=== PATIENT | female | born 1960 | race Caucasian/White ===

== ENCOUNTER 2016-05-10 12:25 | Emergency (ER) | payer OTHER ==
[~2016-05-10] VITALS: Ht 160 cm; Wt 68.9 kg
[~2016-05-10 12:25] MED LIST: CYCLOBENZAPRINE10 M1 PO; DELTASONE20 MG PO; DILAUDID2 M1 PO; FLOMAX0.4 M1 PO; PERCOCET 5-3251 EACH PO; SERTRALINE HCL50 MG PO; SUBOXONE 8 MG-1 EACH SL; ZOFRAN ODT4 M1 SL
[2016-05-10 12:28] VITALS: BP 127/81
--- NOTE | 2016-05-10 13:38 | ED NECK/BACK PAIN COMPLAINT ---
History of Present Illness General Chief Complaint: Low Back Pain/Injury Stated Complaint: LOW BACK PAIN Source: patient Exam Limitations: no limitations Vital Signs & Intake/Output Vital Signs & Intake/Output Vital Signs Date Time Temp Pulse Resp B/P Pulse O2 O2 Flow FiO2 Ox Delivery Rate 05/10 1228 97.8 79 18 127/81 96 Room Air Room Air Allergies Coded Allergies: latex (Mild, BURNING SENSATION 12/24/15) Reconcile Medications Buprenorphine HCl/Naloxone HCl (Suboxone 8 MG-2 MG Sl Film) 8 MG-2 MG FILM 1.5 STR SL DAILY UNKNOWN (Reported) Sertraline HCl 50 MG TABLET 1 TAB PO DAILY MENTAL HEALTH (Reported) Triage Note: TRIAGE: 55 Y/O FEMALE PRESENTS C/O LOWER BACK PAIN AND SPASMS X1 WEEK. REPORTS PAIN INCREASED YESTERDAY, WORSENED THIS MORNING. ABLE TO AMBULATE SLOWLY AND STEADILY. Triage Nurses Notes Reviewed? yes HPI: Ms. Ferreira is a 55 yo f w/ PMH of lumbar disc herniation w/ sciatica, remote L kidney ca presenting to the emergency department for right sided thoracic back pain. Patient states approximately 1.5 weeks ago, she was reaching behind her to wipe her bottom while using the restroom when she developed acute sudden onset right sided paraspinous tenderness. Patient states she feels as if something got pinched when she moved her hand in that position behind her back. The pain has since improved significantly however when she is in the shower cleaning herself and does similar motions reaching behind, she can re-create the pain. Patient states her has been giving her massages,which at the time while they're being done hurts slightly but do improve her pain significantly. She's also been using 800 mg of Advil every day broken out into either 400 mg twice a day for 800 mg in the morning with some relief. When the pain reoccurs, the patient states she occasionally has a shooting like he goes from her mid back and extends down her right arm. The pain only last for a few seconds but can cause her to scream out loud. She's also been using heat and ice with some improvement. Patient wanted to make sure that the massage as well as the CT and ice are not actually exacerbating the problem. She wanted to know if she should do her physical activities of daily life or try to limit herself and be more bedbound. She denies any falls or trauma to the area. Patient denies any chest pain, shortness of breath, jaw pain, dyspnea upon exertion, abdominal pain, nausea, vomiting, diarrhea. She denies any paresthesias in her hand currently. (MARIA DEL CARMEN LANE MD) Past History Travel History Traveled to [place] past 21 day No Medical History Any Pertinent Medical History? 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 No (MARIA DEL CARMEN LANE MD) Review of Systems Review of Systems Constitutional: Reports: no symptoms. Eyes: Reports: no symptoms. Ears, Nose, Throat, Mouth: Reports: no symptoms. Respiratory: Reports: no symptoms. Cardiovascular: Reports: no symptoms. Gastrointestinal/Abdominal: Reports: no symptoms. Musculoskeletal: Reports: back pain, muscle pain, muscle stiffness. Denies: neck pain. Skin: Reports: no symptoms. Neurological/Psychological: Reports: paresthesia, tingling. All Other Systems: Reviewed and Negative (MARIA DEL CARMEN LANE MD) Physical Exam Physical Exam General Appearance: well developed/nourished, no apparent distress, alert, awake Head: atraumatic, normal appearance Eyes: Bilateral: normal appearance, PERRL, EOMI, normal inspection. Ears, Nose, Throat, Mouth: hearing grossly normal Neck: normal inspection, supple, full range of motion, normal alignment, no midline tenderness Respiratory: normal breath sounds, chest non-tender, no respiratory distress Cardiovascular: regular rate/rhythm Back: normal inspection, normal range of motion, no vertebral tenderness, no CVA TTP bilaterally Extremities: non-tender, normal range of motion Straight Leg Raising: Right: Negative. Left: Negative. Sensory: Medial Le: L4R, L4L. Top of Foot: 2: L5R, L5L. Sole of Foot: 2: SIR, SOL. Motor: Deficit L4 Right: No Deficit L4 Left: No Deficit L5 Right: No Deficit L5 Left: No Deficit S1 Right: No Deficit S1 Right: No Neurologic/Psych: no motor/sensory deficits, awake, alert, oriented x 3, normal gait, normal mood/affect, tick eradicator II-XII nml as tested Skin: intact, normal color (MARIA DEL CARMEN LANE MD) Progress Differential Diagnosis: cauda equina syn, herniated disc, pyelo/UTI, sciatica, spinal cord inj, T/L spine injury, ureterolithiasis Plan of Care: A 55-year-old female who is otherwise well appearing. Patient is laying in bed primarily on her left side and appears slightly uncomfortable. Neurologic exam is otherwise unremarkable. Patient has normal motor and sensory function in bilateral upper extremities as well as bilateral lower extremities. Rectal tone is deferred. No issues with ambulation and she denies any issues with bowel or bladder so unlikely cauda equina. History of herniated disks. These have been all noted to be in the lumbar area. No traumatic mechanism to suggest fracture. No CVA tenderness bilaterally or increased urinary frequency or dysuria to suggest pyelonephritis. She has previous history of sciatica however straight leg raise is negative bilaterally and the pain cannot be created with palpation over the buttocks. Patient pain can be re-created with palpation over the right paraspinous area at approximately T12. Most likely, this is a radiculopathy, whether it extends from the vertebral foramen or more distally in the brachial plexus. Patient's full sensory intact in bilateral upper extremities and hands. Discussed with patient at length that she likely has a radiculopathy which is causing a muscle spasm on the right side. Patient offered Valium to assist with pain relief, however the patient does take Suboxone and states that her pain is moderately well controlled with NSAIDs massage heat and ice. She does not want any narcotics or benzodiazepines today. Patient wanted reassurance that the massage is not making her worse and that she should continue with daily activities of living and not limited herself. We spoke at length about possibly obtaining a repeat MRI as her last MRI was performed approximately 1.5 years ago to assess for possible further disc herniations that she has diffuse degenerative disc disease. Also discussed at length the possibility of performing simple range of motion exercises as well as physical therapy to strengthen the muscles and hopefully decrease the radicular pain. (MARIA DEL CARMEN LANE MD) Departure Departure Time of Disposition: 1336 Disposition: HOME OR SELF CARE Condition: Stable Clinical Impression Primary Impression: Radiculopathy affecting upper extremity Referrals: PAUL MORENO,Teresa RECINOS (PCP/Family) Additional Instructions: Please make sure he follow up with her primary care doctor as soon as possible. MIP 3 to have a repeat MRI to assess if you have any additional bulging disks. If you have worsening pain, numbness tingling that continues to last, difficulty using her fingers, difficulty ambulating or any issues with bowel or bladder, previous return to the emergency department for further evaluation. He can continue to use Advil for the pain. Remember if you using more than 800 mg per day, to take a GI medication to prevent ulcers such as Zantac or omeprazole. He can continue to use heat and ice as needed and start doing slow range of motion exercises to help with the pain. Also be helpful to go back to physical therapy. Departure Forms: Customer Survey General Discharge Information (MARIA DEL CARMEN LANE MD) PA/IRRIGATION WORKER Co-Sign Statement Statement: ED Attending supervision documentation- [] I saw and evaluated the patient. I have also reviewed all the pertinent lab results and diagnostic results. I agree with the findings and the plan of care as documented in the PA's/IRRIGATION WORKER's documentation. x I have reviewed the ED Record and agree with the PA's/IRRIGATION WORKER's documentation. [] Additions or exceptions (if any) to the PAs/IRRIGATION WORKER's note and plan are summarized below: [] (STEFANI MORENO,KYM)
== END 2016-05-10 13:45 ==
LOC: ERH 12:25
DX: M54.10 Radiculopathy, site unspecified (principal)
CPT/HCPCS: 99282

== ENCOUNTER 2017-06-06 23:26 | Emergency (ER) | payer OTHER ==
[~2017-06-06] VITALS: Ht 160 cm; Wt 71.7 kg
--- NOTE | 2017-06-07 00:16 | ED GI/GU/ABDOMINAL COMPLAINT ---
History of Present Illness General Chief Complaint: General Adult Stated Complaint: "LT SIDE ABD PAIN,BAD HISTORY OF KIDNEY STONES" Source: patient Exam Limitations: no limitations Vital Signs & Intake/Output Vital Signs & Intake/Output Vital Signs Date Time Temp Pulse Resp B/P B/P Pulse O2 O2 Flow FiO2 Mean Ox Delivery Rate 06/07 0008 98.8 71 18 186/82 96 Room Air Allergies Coded Allergies: latex (Mild, BURNING SENSATION 12/24/15) Reconcile Medications Buprenorphine HCl/Naloxone HCl (Suboxone 8 MG-2 MG Sl Film) 8 MG-2 MG FILM 1.5 STR SL DAILY UNKNOWN (Reported) Sertraline HCl 50 MG TABLET 1 TAB PO DAILY MENTAL HEALTH (Reported) Triage Note: PT TO ED C/O LEFT SIDE PAIN FOR 3 DAYS, GETTING WORSE. PMH OF KIDNEY STONES. "I THOUGHT IT WAS GAS BUT IT'S JUST NOT GETTING BETTER. DENIES N/V. LAST BM WAS YESTERDAY AM. UNSURE OF UTI S/S. Triage Nurses Notes Reviewed? yes ? n Is pt currently ? No Onset: Gradual Duration: day(s): Timing: single episode today Location: left flank Radiation: LLQ Activities at Onset: none Prior Abdominal Problems: similar symptoms Associated Symptoms: abdominal pain HPI: 56 yo woman, on suboxone in prior good health presents with 3 days of left back pain radiating to the left flank, occasional nausea. "Tonight, I couldn't get comfortable." She has no diarrhea, dysuria, fever, chills. She is otherwise well. Past History Travel History Traveled to [place] past 21 day No Medical History Any Pertinent Medical History? 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 No Review of Systems Review of Systems Constitutional: Reports: no symptoms. EENTM: Reports: no symptoms. Respiratory: Reports: no symptoms. Cardiovascular: Reports: no symptoms. GI: Reports: no symptoms. Genitourinary: Reports: no symptoms. Musculoskeletal: Reports: no symptoms. Skin: Reports: no symptoms. Neurological/Psychological: Reports: no symptoms. Hematologic/Endocrine: Reports: no symptoms. Immunologic/Allergic: Reports: no symptoms. All Other Systems: Reviewed and Negative Physical Exam Physical Exam General Appearance: well developed/nourished, mild distress Head: atraumatic, normal appearance Eyes: Bilateral: normal appearance. Ears, Nose, Throat, Mouth: hearing grossly normal, moist mucous membrane Neck: normal inspection, supple, full range of motion, normal alignment Respiratory: normal breath sounds, chest non-tender, no respiratory distress, quiet respiration Cardiovascular: regular rate/rhythm Gastrointestinal: normal bowel sounds, soft, non-tender, no organomegaly Back: normal inspection Extremities: normal range of motion Neurologic/Psych: no motor/sensory deficits, awake, alert, oriented x 3 Skin: intact, normal color, warm/dry Core Measures ACS in differential dx? No Sepsis Present: No Sepsis Focused Exam Completed? No Progress Differential Diagnosis: kidney stones, pyelo, back pain vs other. Plan of Care: Orders Procedure Date/time Status URINALYSIS 06/06 2333 Complete LIPASE 06/06 2333 Complete HEPATIC FUNCTION PANEL 06/06 2333 Complete CBC WITHOUT DIFFERENTIAL 06/06 2333 Complete BASIC METABOLIC PANEL 06/06 2333 Complete AMYLASE 06/06 2333 Complete Laboratory Tests 06/07/17 0033: Anion Gap 9, Estimated GFR > 60, BUN/Creatinine Ratio 21.7, Glucose 97, Calcium 9.3, Total Bilirubin 0.4, Direct Bilirubin 0.4, AST 26, ALT 20, Alkaline Phosphatase 73, Total Protein 7.1, Albumin 4.2, Amylase 39, Lipase 25, CBC w Diff NO MAN DIFF REQ, RBC 4.21, MCV 85.2, MCH 28.6, MCHC 33.6, RDW 14.1, MPV 7.7 , Gran % 59.1, Lymphocytes % 32.8, Monocytes % 4.4, Eosinophils % 3.5, Basophils % 0.2, Absolute Granulocytes 5.7, Absolute Lymphocytes 3.2, Absolute Monocytes 0.4, Absolute Eosinophils 0.3, Absolute Basophils 0 06/06/175: Urine Color YEL, Urine Clarity CLEAR, Urine pH 7.0, Ur Specific [place] 1.010, Urine Protein NEG, Urine Ketones NEG, Urine Nitrite NEG, Urine Bilirubin NEG, Urine Urobilinogen 0.2, Ur Leukocyte Esterase NEG, Ur Microscopic EXAM NOT REQUIRED, Urine Hemoglobin NEG, Urine Glucose NEG Diagnostic Imaging: Viewed by Me: CT Scan. Discussed w/RAD: CT Scan. Radiology Impression: PATIENT: ADITHYA COOPER PRESENT AGE: 56 PATIENT ACCOUNT NO: [id number] : 60 LOCATION: [facility] ORDERING PHYSICIAN: Fran Medellin MD SERVICE DATE: 06/07/17 EXAM TYPE: CAT - CT ABD & PELVIS W/O IV CONTRAS EXAMINATION: CT ABDOMEN AND PELVIS WITHOUT CONTRAST CLINICAL INFORMATION: Left flank pain COMPARISON: 10/19/2015 TECHNIQUE: Multidetector volumetric imaging was performed from the superior aspect of the liver through the pubic symphysis. Sagittal and coronal reformatted images were obtained on the technologist's workstation. DLP: 510.23 mGy-cm FINDINGS: LUNG BASES: The visualized lung bases are unremarkable. LIVER, GALLBLADDER, AND BILIARY TREE: The liver is normal in size, shape, and attenuation. No focal hepatic lesion or biliary ductal dilatation is present. There is hyperdensity of the gallbladder fundus suspicious for sludge or cholelithiasis. PANCREAS: Unremarkable. SPLEEN: Unremarkable. ADRENAL GLANDS: Unremarkable. KIDNEYS AND URETERS: No hydronephrosis or ureteral calculus bilaterally. There is a left lower pole renal calculus measuring 0.3 cm. No right-sided renal calculi are seen. BLADDER: Unremarkable. GASTROINTESTINAL TRACT: There are postsurgical changes along the stomach and proximal small bowel suspicious for gastric bypass surgery. There is a suspected hiatal hernia. No evidence of bowel obstruction. No abnormal colonic wall thickening or pericolonic inflammation is identified. The appendix is unremarkable. No free fluid or free air is seen. ABDOMINAL WALL: There is redemonstrated soft tissue thickening and focal calcification along the upper anterior abdominal wall, which may reflect postsurgical scarring. LYMPH NODES: Normal. VASCULAR: Scattered atherosclerotic calcifications are present. PELVIC VISCERA: Unremarkable. OSSEOUS STRUCTURES: Degenerative changes are noted in the spine. IMPRESSION: 1. No hydronephrosis or ureteral calculus. Left lower pole 0.3 cm renal calculus. 2. Status post gastric bypass surgery. Suspect hiatal hernia. 3. Cholelithiasis versus gallbladder sludge at the fundus. DICTATED BY: Gabriel Matos MD DATE/TIME DICTATED:06/07/17144 CUT TOBACCO BULKER:LARISSA DATE/TIME TRANSCRIBED:06/07/17144 CONFIDENTIAL, DO NOT COPY WITHOUT APPROPRIATE AUTHORIZATION. <Electronically signed in Other Vendor System> SIGNED BY: Gabriel Matos MD 06/07/17 0158 Initial ED EKG: none Departure Departure Disposition: HOME OR SELF CARE Condition: Stable Clinical Impression Primary Impression: Abdominal pain Secondary Impressions: Back pain Referrals: Teresa Mckenna MD (PCP/Family) Departure Forms: Customer Survey General Discharge Information Comments 06/07/17, 2:22am... pt with benign ct scan, labs... resting comfortably... safe for discharge... close follow up advised. Disposition: HOME OR SELF CARE Condition: Stable Clinical Impression Primary Impression: Abdominal pain Secondary Impressions: Back pain Referrals: Teresa Mckenna MD (PCP/Family) Departure Forms: Customer Survey General Discharge Information
[2017-06-07 00:36] LABS: ABSOLUTE BASOPHIL COUNT 0 /CUMM (0.0-0.2); ABSOLUTE EOSINOPHIL COUNT 0.3 /CUMM (0.0-0.7); ABSOLUTE GRANULOCYTE CT 5.7 /CUMM (1.4-6.5); ABSOLUTE LYMPH COUNT 3.2 /CUMM (1.2-3.4); ABSOLUTE MONOCYTE COUNT 0.4 /CUMM (0.10-0.60); BASOPHIL % 0.2 % (0.0-2.0); EOSINOPHIL % 3.5 % (0-5); GRANULOCYTE % 59.1 % (42.2-75.2); HEMATOCRIT 35.9 % (37-47); MEAN CORPUSCULAR HGB 28.6 PG (27.0-31.0); MEAN CORPUSCULAR HGB CONC 33.6 G/DL (33.0-37.0); MEAN CORPUSCULAR VOLUME 85.2 FL (81.0-99.0); MEAN PLATELET VOLUME 7.7 FL (7.4-10.4); PLATELET COUNT 252 /CUMM (130-400); RBC DISTRIBUTION WIDTH 14.1 % (11.5-14.5); RED BLOOD CELL CT 4.21 /CUMM (4.20-5.40); WHITE BLOOD CELL COUNT 9.6 /CUMM (4.8-10.8)
--- NOTE | 2017-06-07 01:58 | CT SCAN REPORT ---
EXAMINATION: CT ABDOMEN AND PELVIS WITHOUT CONTRAST CLINICAL INFORMATION: Left flank pain COMPARISON: 10/19/2015 TECHNIQUE: Multidetector volumetric imaging was performed from the superior aspect of the liver through the pubic symphysis. Sagittal and coronal reformatted images were obtained on the technologist's workstation. DLP: 510.23 mGy-cm FINDINGS: LUNG BASES: The visualized lung bases are unremarkable. LIVER, GALLBLADDER, AND BILIARY TREE: The liver is normal in size, shape, and attenuation. No focal hepatic lesion or biliary ductal dilatation is present. There is hyperdensity of the gallbladder fundus suspicious for sludge or cholelithiasis. PANCREAS: Unremarkable. SPLEEN: Unremarkable. ADRENAL GLANDS: Unremarkable. KIDNEYS AND URETERS: No hydronephrosis or ureteral calculus bilaterally. There is a left lower pole renal calculus measuring 0.3 cm. No right-sided renal calculi are seen. BLADDER: Unremarkable. GASTROINTESTINAL TRACT: There are postsurgical changes along the stomach and proximal small bowel suspicious for gastric bypass surgery. There is a suspected hiatal hernia. No evidence of bowel obstruction. No abnormal colonic wall thickening or pericolonic inflammation is identified. The appendix is unremarkable. No free fluid or free air is seen. ABDOMINAL WALL: There is redemonstrated soft tissue thickening and focal calcification along the upper anterior abdominal wall, which may reflect postsurgical scarring. LYMPH NODES: Normal. VASCULAR: Scattered atherosclerotic calcifications are present. PELVIC VISCERA: Unremarkable. OSSEOUS STRUCTURES: Degenerative changes are noted in the spine. IMPRESSION: 1. No hydronephrosis or ureteral calculus. Left lower pole 0.3 cm renal calculus. 2. Status post gastric bypass surgery. Suspect hiatal hernia. 3. Cholelithiasis versus gallbladder sludge at the fundus.
[2017-06-07 02:25] VITALS: BP 165/74
== END 2017-06-07 02:25 ==
LOC: ERH 23:26
PROVIDERS: Pediatrics
DX: R10.32 Left lower quadrant pain (principal); M54.5 Low back pain
CPT/HCPCS: 74176; 81003; 96374; J0131

== ENCOUNTER 2017-07-18 14:59 | Inpatient (IN) | payer OTHER ==
[~2017-07-18] VITALS: Ht 160 cm; Wt 85.7 kg
[2017-07-18 16:09] LABS: ABSOLUTE BASOPHIL COUNT 0 /CUMM (0.0-0.2); ABSOLUTE EOSINOPHIL COUNT 0 /CUMM (0.0-0.7); ABSOLUTE GRANULOCYTE CT 20.2 /CUMM (1.4-6.5); ABSOLUTE LYMPH COUNT 0.5 /CUMM (1.2-3.4); ABSOLUTE MONOCYTE COUNT 0.5 /CUMM (0.10-0.60); BASOPHIL % 0.1 % (0.0-2.0); EOSINOPHIL % 0 % (0-5); GRANULOCYTE % 94.9 % (42.2-75.2); HEMATOCRIT 37.8 % (37-47); MEAN CORPUSCULAR HGB 28.4 PG (27.0-31.0); MEAN CORPUSCULAR HGB CONC 33.7 G/DL (33.0-37.0); MEAN CORPUSCULAR VOLUME 84.3 FL (81.0-99.0); MEAN PLATELET VOLUME 8.1 FL (7.4-10.4); PLATELET COUNT 237 /CUMM (130-400); RBC DISTRIBUTION WIDTH 13.9 % (11.5-14.5); RED BLOOD CELL CT 4.49 /CUMM (4.20-5.40); WHITE BLOOD CELL COUNT 21.3 /CUMM (4.8-10.8)
--- NOTE | 2017-07-18 16:11 | ED GENERAL ADULT ---
History of Present Illness General Chief Complaint: General Adult Stated Complaint: PT STATES "SOMETHINGS WRONG/FEVER WEAK,SHAKEY" Source: patient Exam Limitations: no limitations Vital Signs & Intake/Output Vital Signs & Intake/Output Vital Signs Date Time Temp Pulse Resp B/P B/P Pulse O2 O2 Flow FiO2 Mean Ox Delivery Rate 07/18 2249 109/59 07/18 2213 99.1 88 98/58 95 07/18 2125 98.9 79 19 96/51 95 07/18 2002 99.1 81 17 101/54 94 Room Air 07/18 1824 18 98 Nasal 2.0L Cannula 07/18 1818 98.8 79 18 95/48 90 Room Air 07/18 1519 98.9 96 16 97/67 97 Room Air Allergies Coded Allergies: latex (Mild, BURNING SENSATION 12/24/15) Reconcile Medications Buprenorphine HCl/Naloxone HCl (Suboxone 8 MG-2 MG Sl Film) 8 MG-2 MG FILM 1.5 STR SL DAILY UNKNOWN (Reported) Sertraline HCl 50 MG TABLET 1 TAB PO DAILY MENTAL HEALTH (Reported) Triage Note: PT STATES THAT SHE HAS C-DIFF THAT SHE HAS BEEN BEING TREATED FOR , HAS HAD NUMEROUS EPISODES OF WATERY STOOL TODAY, COMPLAINS OF FEELING WEAK, BP 97/67 ALSO STATES THAT SHE WAS DIAGNOSED WITH KIDNEY CANCER LAST MONTH AND HAS BEEN HAVING LOW BACK PAIN Triage Nurses Notes Reviewed? yes Onset: Abrupt Duration: day(s): (1-2), constant, continues in ED Timing: single episode today Injury Environment: home Severity: moderate, severe Severity Numbers: 8 No Modifying Factors: none Associated Symptoms: back pain LMP (ages 10-50): post menopausal, unknown : No Patient currently breastfeeds: No HPI: 56 YEAR OLD female with history of renal cancer, recurrent C. difficile presents for evaluation of lower abdominal pain, diarrhea, weakness and body aches. Patient reports she has been having recurrent C. difficile multiple times. She states that 2 weeks ago she started treatment with oral vancomycin which she did for one week. She initially felt better but then her symptoms came back. Yesterday she started dIFFICID and today she woke up with worsening pain in her belly continued watery diarrhea without blood, weakness and diffuse body aches. Patient states she has had a decreased appetite has not been drinking much fluid. She denies chest pain shortness of breath. She has subjective signs of fever with sweats and chills but has not taken her temperature. She is not taking any pain medicine. No vomiting. No recent abdominal surgery. (Yariel Dockery) Past History Travel History Traveled to [place] past 21 day No Medical History Any Pertinent Medical History? 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 No (Yariel Dockery) Review of Systems Review of Systems Constitutional: Reports: malaise, weakness. EENTM: Reports: no symptoms. Respiratory: Reports: no symptoms. Cardiovascular: Reports: no symptoms. GI: Reports: see HPI, abdominal pain, diarrhea. Genitourinary: Reports: no symptoms. Musculoskeletal: Reports: back pain, muscle pain, muscle stiffness. Skin: Reports: no symptoms. Neurological/Psychological: Reports: no symptoms. Hematologic/Endocrine: Reports: no symptoms. Immunologic/Allergic: Reports: no symptoms. All Other Systems: Reviewed and Negative (Yariel Dockery) Physical Exam Physical Exam General Appearance: well developed/nourished, no apparent distress, alert, awake Head: atraumatic, normal appearance Eyes: Bilateral: normal appearance, PERRL, EOMI. Ears, Nose, Throat: normal pharynx, normal ENT inspection, hearing grossly normal Neck: normal inspection, supple, full range of motion Respiratory: normal breath sounds, chest non-tender, no respiratory distress, lungs clear Cardiovascular: regular rate/rhythm, normal peripheral pulses Peripheral Pulses: 2+ radial (R), 2+ radial (L) Gastrointestinal: normal bowel sounds, soft, no organomegaly, tenderness ( DIFFUSE LOWER ABDOMINAL PAIN) Back: normal inspection, normal range of motion, LUMBAR PARASPINOUS MUSCLES TENDER TO PALPATION BILATERALLY Extremities: normal inspection, normal range of motion, no edema Neurologic/Psych: no motor/sensory deficits, awake, alert, oriented x 3, normal gait Skin: intact, normal color, warm/dry Lymphatic: no anterior cervical genevieve Core Measures ACS in differential dx? No CVA/TIA Diagnosis: No Sepsis Present: No Sepsis Focused Exam Completed? No (Anthony PAN,Yariel) Progress Differential Diagnoses I considered the following diagnoses in my evaluation of the patient: [C. difficile, bacterial gastritis, colitis, sepsis, UTI, pneumonia, dehydration, electrolyte abnormality] Plan of Care: Orders Procedure Date/time Status Full Liquid Diet 07/19 B Active Patient Data 07/18 2250 Active ED Holding Orders 07/19 2247 Active Admit to inpatient 07/19 2247 Active Vital Signs 07/19 2247 Active Code Status 07/19 2247 Active CULTURE,STOOL 07/18 1937 Active OVA AND PARASITE ANTIGENS 07/18 1937 Active C.DIFFICILE 07/18 1937 Active Add-on Test (ER Only) 07/18 1903 Active FRESH FROZEN PLASMA 07/18 1820 Active TYPE & SCREEN (NOT X-MATCH) 07/18 181 Complete Add-on Test (ER Only) 07/18 1657 Active CULTURE,URINE 07/18 1640 Active BLOOD CULTURE 07/18 1640 Active D-DIMER 07/18 1550 Complete URINALYSIS 07/18 1528 Complete TROPONIN LEVEL 07/18 1528 Complete LACTIC ACID 07/18 1528 Complete COMPREHENSIVE METABOLIC PANEL 07/18 1528 Complete CBC WITHOUT DIFFERENTIAL 07/18 1528 Complete EKG 07/18 1528 Active Laboratory Tests 07/18/17 1828: Lactic Acid Cancelled 07/18/17 1658: Anion Gap 9, Estimated GFR > 60, BUN/Creatinine Ratio 25.0, Glucose 120 H, Lactic Acid 1.1, Calcium 8.6, Total Bilirubin 0.5, AST 26, ALT 22, Alkaline Phosphatase 65, Troponin I < 0.01, Total Protein 6.5, Albumin 3.6, Globulin 2.9, Albumin/Globulin Ratio 1.2 07/18/17 1640: Urinalysis MOD H, Urine Color YEL, Urine Clarity HAZY H, Urine pH 6.0, Ur Specific Enterprise >= 1.030, Urine Protein 30 H, Urine Ketones 15 H, Urine Nitrite NEG, Urine Bilirubin NEG@ICTO, Urine Urobilinogen 0.2, Ur Leukocyte Esterase TRACE H, Ur Microscopic SEDIMENT EXAMINED, Urine WBC 1-3 H, Ur Epithelial Cells FEW, Urine Bacteria MOD H, Urine Mucus MOD H, Urine Hemoglobin NEG, Urine Glucose NEG 07/18/17 1550: D-Dimer High Sensitivty 781 H, CBC w Diff MAN DIFF ORDERED, RBC 4.49, MCV 84.3, MCH 28.4, MCHC 33.7, RDW 13.9, MPV 8.1, Gran % 94.9 H, Lymphocytes % 2.5 L, Monocytes % 2.5, Eosinophils % 0, Basophils % 0.1, Absolute Granulocytes 20.2 H , Segmented Neutrophils 90 H, Band Neutrophils 4, Absolute Lymphocytes 0.5 L, Lymphocytes 4 L, Monocytes 2, Absolute Monocytes 0.5, Absolute Eosinophils 0, Absolute Basophils 0, Platelet Estimate ADEQUATE, Stomatocytes FEW Microbiology 07/18 1937 STOOL: Cryptosporidium Antigen - ORD 07/18 1937 STOOL: Giardia Antigen (MARY JANE) - ORD 07/18 1937 STOOL: Clostridium difficile Toxin A & B - ORD 07/18 1937 STOOL: Stool Culture - ORD 07/18 1751 BLOOD: Blood Culture - RECD 07/18 1658 BLOOD: Blood Culture - RECD 07/18 1640 URINE ROUT: Urine Culture - RECD Patient seen and evaluated. She is here with weakness dizziness abdominal pain and multiple episodes of watery diarrhea. She has been diagnosed with C. difficile multiple times. She was treated with oral vancomycin 2 weeks ago without improvement she was started dIFICID yesterday. She arrives with a systolic blood pressure in the 90s. Fluids were ordered. Labs blood cultures CT of the abdomen ordered. Patient's EKG shows worsening diffuse T-wave changes compared to previous. Patient received 2 L of fluid and has not improved her blood pressure. Additional liter was ordered. Blood work shows a white count of 21,000 which would support a diagnosis of C. difficile. Her CT scan is negative for any acute findings. Chest x-ray clear. Remaining blood work is within normal limits. Patient's blood work has started to come up after additional fluid to 100s over 50s over her oxygen saturation on room air was noted to be slightly low now. She was placed on oxygen with good improvement. D-dimer was added on and was elevated so a CTA will be obtained. Patient will likely require admission to the hospital. CTA is negative. Patient's blood pressure remains in the 90s over 50s. Additional fluids ordered. She received IV Flagyl. Stool cultures were sent patient will be admitted to the hospital for further evaluation and treatment of C. difficile dehydration and hypotension. Case discussed with Dr. Gannon he agrees. Patient's blood pressure is now 109/59 after hydration. She should be okay for general medicine. Diagnostic Imaging: Viewed by Me: Radiology Read, CT Scan. Discussed w/RAD: Radiology Read, CT Scan. Radiology Impression: PATIENT: ADITHYA COOPER PRESENT AGE: 56 PATIENT ACCOUNT NO: [id number] : 60 LOCATION: ER ORDERING PHYSICIAN: Yariel PAN SERVICE DATE: 07/18/17 EXAM TYPE: RAD - XRY- PORTABLE CHEST XRAY EXAMINATION: XR CHEST, PORTABLE CLINICAL INFORMATION: Elevated WBC, fever. COMPARISON: Chest radiography 11/17/2012. TECHNIQUE: Portable frontal view of the chest was obtained. FINDINGS: The lungs are well expanded. No convincing lobar consolidation, pleural effusion, pulmonary edema, or pneumothorax. No mediastinal widening. Surgical clips overlie the lower thorax/upper abdomen. No acute osseous abnormalities. IMPRESSION: No evidence of pneumonia. DICTATED BY: Adria Blanton MD DATE/TIME DICTATED:07/18/171744 GARMENT SEWING MACHINE OPERATOR:LARISSA DATE/TIME TRANSCRIBED:07/18/171744 CONFIDENTIAL, DO NOT COPY WITHOUT APPROPRIATE AUTHORIZATION. <Electronically signed in Other Vendor System> SIGNED BY: Adria Blanton MD 07/18/171755, PATIENT: ADITHYA COOPER PRESENT AGE: 56 PATIENT ACCOUNT NO: [id number] : 60 LOCATION: [facility] ORDERING PHYSICIAN: Yariel PAN SERVICE DATE: 07/18/17405 EXAM TYPE: CAT - CT ABD & PELVIS W/O IV CONTRAS EXAMINATION: CT ABDOMEN AND PELVIS WITHOUT CONTRAST CLINICAL INFORMATION: Diarrhea with back pain. COMPARISON: CT abdomen/pelvis 06/07/2017. TECHNIQUE: Multidetector volumetric imaging was performed from the superior aspect of the liver through the pubic symphysis. Sagittal and coronal reformatted images were obtained on the technologist's workstation. DLP: 464.68 mGy-cm FINDINGS: LUNG BASES: The visualized lung bases are unremarkable. LIVER, GALLBLADDER, AND BILIARY TREE: The liver is normal in size, shape, and attenuation. No focal hepatic lesion or biliary ductal dilatation is present. The gallbladder is mildly distended with a small amount of echogenic sludge layering within the dependent gallbladder. No gallbladder wall thickening or pericholecystic fluid. The common bile duct is normal. PANCREAS: Unremarkable. SPLEEN: Unremarkable. ADRENAL GLANDS: Unremarkable. KIDNEYS AND URETERS: The kidneys are normal in size, shape, and attenuation. No hydronephrosis or hydroureter. Punctate 2 mm calcification lower pole left kidney is unchanged. No perinephric stranding. BLADDER: Unremarkable. GASTROINTESTINAL TRACT: Status post Onofre-en-Y gastric bypass. The small and large bowel are otherwise normal in course and caliber . No obstruction. No pericolonic inflammatory changes. Small hiatal hernia with additional postsurgical changes of the gastroesophageal junction. ABDOMINAL WALL: Stable postsurgical changes of the anterior abdominal wall with a prominent soft tissue calcification. Small umbilical fat-containing hernia, unchanged. LYMPH NODES: Normal. VASCULAR: Minimal atherosclerotic changes of the abdominal aorta and its branches. PELVIC VISCERA: Unremarkable. OSSEOUS STRUCTURES: Stable mild degenerative changes of the spine. No acute osseous finding. IMPRESSION: No acute abdominal/pelvic pathology. Stable punctate nonobstructive calculus in the left kidney. DICTATED BY: Claude Louis MD DATE/TIME DICTATED:07/18/171739 GARMENT SEWING MACHINE OPERATOR:LARISSA DATE/TIME TRANSCRIBED:07/18/171739 CONFIDENTIAL, DO NOT COPY WITHOUT APPROPRIATE AUTHORIZATION. <Electronically signed in Other Vendor System> SIGNED BY: Claude Louis MD 07/18/17 175, PATIENT: ADITHYA COOPER PRESENT AGE: 56 PATIENT ACCOUNT NO: [id number] : 60 LOCATION: [facility] ORDERING PHYSICIAN: Yariel PAN SERVICE DATE: 07/18/17 EXAM TYPE: CAT - CTA CHEST-PULMONARY EMBOLISM EXAMINATION: CT ANGIOGRAM OF THE CHEST WITH AND WITHOUT CONTRAST (CT PULMONARY ANGIOGRAM FOR PE) CLINICAL INFORMATION: Hypoxia and hypotension. COMPARISON: None available. TECHNIQUE: Prior to contrast administration, noncontrast localization images were obtained. Subsequently, multidetector volumetric imaging was performed from the thoracic inlet to below the diaphragms following the administration of 95 mL Optiray 320 intravenous contrast. No contrast reaction reported. Sagittal, coronal, and MIP oblique sagittal reformatted images were obtained on the CT workstation, uploaded to PACS, and reviewed. Total exam dose-length product 400.46 mGy-cm. FINDINGS: QUALITY OF STUDY/CONTRAST BOLUS: Satisfactory PULMONARY ARTERIES: No central or segmental pulmonary emboli. THORACIC AORTA: No aneurysm or dissection. LUNG: No focal consolidation, nodules or masses. Minimal gravity dependent changes of the lungs bilaterally. PLEURA: No pleural effusion or pneumothorax. MEDIASTINUM: Normal heart size. No pericardial effusion. No hilar or mediastinal lymphadenopathy. No evidence of septal bowing or right heart strain. CHEST WALL/AXILLA: No axillary or internal mammary lymphadenopathy. OSSEOUS STRUCTURES: No acute or suspicious osseous abnormality. UPPER ABDOMEN: Stable appearance of the abdomen from CT examination dated earlier today. No reflux of contrast into the hepatic veins to suggest elevated right heart pressures. IMPRESSION: No evidence of pulmonary embolism or acute thoracic pathology. VTE: Negative. DICTATED BY: Claude Louis MD DATE/TIME DICTATED:10/27 GARMENT SEWING MACHINE OPERATOR:LARISSA DATE/TIME TRANSCRIBED:07/18/172119 CONFIDENTIAL, DO NOT COPY WITHOUT APPROPRIATE AUTHORIZATION. <Electronically signed in Other Vendor System> SIGNED BY: Claude Louis MD 07/18/172130 Initial ED EKG: normal sinus rhythm, left atrial abn, diffuse t wave changes Prior EKG: changed (WORSENING T WAVE CHANGES ) (Yariel Dockery) Departure Departure Disposition: STILL A PATIENT Condition: Stable Clinical Impression Primary Impression: Clostridium difficile diarrhea Secondary Impressions: Acute electrocardiogram changes Referrals: Haim Oates MD (PCP/Family) Departure Forms: Customer Survey General Discharge Information (Yariel Dockery) Admission Note Spoke With: Juan Luna MD Documentation of Exam: Documentation of any treatments & extenuating circumstances including Concerns Regarding Discharge (functional status, medication knowledge or non-compliance, living conditions, etc.) that warrant an admission rather than observation: [The patient needs IV fluids, IV antibiotics, infectious disease consultation] She has severe refractory C. difficile. Crampy lower abdominal pain, hypotension. PA/TERRAZZO ROLLER Co-Sign Statement Statement: ED Attending supervision documentation- [X] I saw and evaluated the patient. I have also reviewed all the pertinent lab results and diagnostic results. I agree with the findings and the plan of care as documented in the PA's/TERRAZZO ROLLER's documentation. [] I have reviewed the ED Record and agree with the PA's/TERRAZZO ROLLER's documentation. [] Additions or exceptions (if any) to the PAs/TERRAZZO ROLLER's note and plan are summarized below: [] (David Gannon DO) Critical Care Note Critical Care Note Critical Care Time: non-applicable (Anthony PAN,Yariel)
--- NOTE | 2017-07-18 17:51 | CT SCAN REPORT ---
EXAMINATION: CT ABDOMEN AND PELVIS WITHOUT CONTRAST CLINICAL INFORMATION: Diarrhea with back pain. COMPARISON: CT abdomen/pelvis 06/07/2017. TECHNIQUE: Multidetector volumetric imaging was performed from the superior aspect of the liver through the pubic symphysis. Sagittal and coronal reformatted images were obtained on the technologist's workstation. DLP: 464.68 mGy-cm FINDINGS: LUNG BASES: The visualized lung bases are unremarkable. LIVER, GALLBLADDER, AND BILIARY TREE: The liver is normal in size, shape, and attenuation. No focal hepatic lesion or biliary ductal dilatation is present. The gallbladder is mildly distended with a small amount of echogenic sludge layering within the dependent gallbladder. No gallbladder wall thickening or pericholecystic fluid. The common bile duct is normal. PANCREAS: Unremarkable. SPLEEN: Unremarkable. ADRENAL GLANDS: Unremarkable. KIDNEYS AND URETERS: The kidneys are normal in size, shape, and attenuation. No hydronephrosis or hydroureter. Punctate 2 mm calcification lower pole left kidney is unchanged. No perinephric stranding. BLADDER: Unremarkable. GASTROINTESTINAL TRACT: Status post Onofre-en-Y gastric bypass. The small and large bowel are otherwise normal in course and caliber . No obstruction. No pericolonic inflammatory changes. Small hiatal hernia with additional postsurgical changes of the gastroesophageal junction. ABDOMINAL WALL: Stable postsurgical changes of the anterior abdominal wall with a prominent soft tissue calcification. Small umbilical fat-containing hernia, unchanged. LYMPH NODES: Normal. VASCULAR: Minimal atherosclerotic changes of the abdominal aorta and its branches. PELVIC VISCERA: Unremarkable. OSSEOUS STRUCTURES: Stable mild degenerative changes of the spine. No acute osseous finding. IMPRESSION: No acute abdominal/pelvic pathology. Stable punctate nonobstructive calculus in the left kidney.
--- NOTE | 2017-07-18 17:56 | RADIOLOGY REPORT ---
EXAMINATION: XR CHEST, PORTABLE CLINICAL INFORMATION: Elevated WBC, fever. COMPARISON: Chest radiography 11/17/2012. TECHNIQUE: Portable frontal view of the chest was obtained. FINDINGS: The lungs are well expanded. No convincing lobar consolidation, pleural effusion, pulmonary edema, or pneumothorax. No mediastinal widening. Surgical clips overlie the lower thorax/upper abdomen. No acute osseous abnormalities. IMPRESSION: No evidence of pneumonia.
--- NOTE | 2017-07-18 21:31 | CT SCAN REPORT ---
EXAMINATION: CT ANGIOGRAM OF THE CHEST WITH AND WITHOUT CONTRAST (CT PULMONARY ANGIOGRAM FOR PE) CLINICAL INFORMATION: Hypoxia and hypotension. COMPARISON: None available. TECHNIQUE: Prior to contrast administration, noncontrast localization images were obtained. Subsequently, multidetector volumetric imaging was performed from the thoracic inlet to below the diaphragms following the administration of 95 mL Optiray 320 intravenous contrast. No contrast reaction reported. Sagittal, coronal, and MIP oblique sagittal reformatted images were obtained on the CT workstation, uploaded to PACS, and reviewed. Total exam dose-length product 400.46 mGy-cm. FINDINGS: QUALITY OF STUDY/CONTRAST BOLUS: Satisfactory PULMONARY ARTERIES: No central or segmental pulmonary emboli. THORACIC AORTA: No aneurysm or dissection. LUNG: No focal consolidation, nodules or masses. Minimal gravity dependent changes of the lungs bilaterally. PLEURA: No pleural effusion or pneumothorax. MEDIASTINUM: Normal heart size. No pericardial effusion. No hilar or mediastinal lymphadenopathy. No evidence of septal bowing or right heart strain. CHEST WALL/AXILLA: No axillary or internal mammary lymphadenopathy. OSSEOUS STRUCTURES: No acute or suspicious osseous abnormality. UPPER ABDOMEN: Stable appearance of the abdomen from CT examination dated earlier today. No reflux of contrast into the hepatic veins to suggest elevated right heart pressures. IMPRESSION: No evidence of pulmonary embolism or acute thoracic pathology. VTE: Negative.
--- NOTE | 2017-07-18 23:01 | History & Physical ---
Xavi Aragon MD 07/18/17 1721: General Information and HPI MD Statement: I have seen and personally examined ADITHYA COOPER and documented this H&P. The patient is a 56 year old F who presented with a patient stated chief complaint of [diarrhea]. Source of Information: patient, old records Exam Limitations: no limitations History of Present Illness: Patient is a 56-year-old female with a PMH significant for renal cell carcinoma, depression, chronic back pain, recurrent C. difficile, who presents to the [facility] ED complaining of diarrhea, fatigue, malaise for the past 2 days. Patient had first bout of C. difficile approximately 6 years ago, this was a prolonged course. He do not have weeks ago she had recurrence of C. difficile after receiving clindamycin for a dental abscess. She was treated with 1 week of vancomycin and her symptoms improved until one day prior to admission when she began having severe watery diarrhea with mild abdominal cramping. On the day of admission she began experiencing severe fatigue and malaise with body aches. She had a fever and chills at home and took her temperature at home and found to be 101. He denies any nausea, vomiting, abdominal pain, chest pain, shortness of breath, palpitations Allergies/Medications Allergies: Coded Allergies: latex (Mild, BURNING SENSATION 12/24/15) Home Med list Buprenorphine HCl/Naloxone HCl (Suboxone 8 MG-2 MG Sl Film) 8 MG-2 MG FILM 1.5 STR SL DAILY UNKNOWN (Reported) Sertraline HCl 50 MG TABLET 1 TAB PO DAILY MENTAL HEALTH (Reported) Past History Travel History Traveled to [place] past 21 day No Medical History Neurological: NONE EENT: NONE Cardiovascular: NONE Respiratory: NONE Gastrointestinal: NONE Hepatic: NONE Renal: pyelonephritis KIDNEY STONES Musculoskeletal: disk herniation Psychiatric: anxiety, depression Endocrine: NONE Blood Disorders: NONE Cancer(s): LEFT KIDNEY CANCER 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 Home Services at Home: None Primary Language: Venezuelan Smoking Status: Current Everyday Smoker ETOH Use: denies use Illicit Drug Use: denies illicit drug use Living Will? no Functional Ability ADLs Independent: dressing, eating, toileting, bathing. Ambulation: independent IADLs Independent: shopping, housework, finances, food prep, telephone, transportation , medication admin. Review of Systems Review of Systems Constitutional: Reports: chills, fever, malaise. EENTM: Denies: blurred vision, double vision, visual changes. Cardiovascular: Denies: chest pain, palpitations, syncope. Respiratory: Denies: cough, short of breath. GI: Reports: diarrhea, nausea, bloody stool (scant blood in stool). Denies: abdominal pain. Genitourinary: Denies: discharge, dysuria, frequency. Musculoskeletal: Reports: back pain (chronic). Skin: Reports: no symptoms. Neurological/Psychological: Reports: no symptoms. Hematologic/Endocrine: Reports: no symptoms. Exam & Diagnostic Data Last 24 Hrs of Vital Signs/I&O Vital Signs Date Time Temp Pulse Resp B/P B/P Pulse O2 O2 Flow FiO2 Mean Ox Delivery Rate 07/19 0001 100.3 60 22 157/58 94 Room Air 07/18 2249 109/59 07/18 2213 99.1 88 98/58 95 07/18 2125 98.9 79 19 96/51 95 07/18 2002 99.1 81 17 101/54 94 Room Air 07/18 1824 18 98 Nasal 2.0L Cannula 07/18 1818 98.8 79 18 95/48 90 Room Air 07/18 1519 98.9 96 16 97/67 97 Room Air Intake & Output 07/19 0800 07/19 0000 07/18 1600 Intake Total Output Total Balance Patient 158 lb 158 lb Weight Physical Exam General Appearance Alert, Oriented X3, Cooperative Skin Temp/Moisture Exam: Warm/Dry Sepsis Skin Exam (color): Normal for Ethnicity HEENT Atraumatic, PERRLA, EOMI, mucous membranes dry Cardiovascular Regular Rate, Normal S1, Normal S2 Lungs Clear to Auscultation, Normal Air Movement Abdomen Normal Bowel Sounds, Soft, mild tenderness to palpation in the LLQ Neurological Normal Speech, Strength at 5/5 X4 Ext, Normal Tone, Sensation Intact, Cranial Nerves 3-12 NL Extremities No Clubbing, No Cyanosis, No Edema Last 24 Hrs of Labs/Luis: Laboratory Tests 07/18/17 1828: Lactic Acid Cancelled 07/18/17 1658: Anion Gap 9, Estimated GFR > 60, BUN/Creatinine Ratio 25.0, Glucose 120 H, Lactic Acid 1.1, Calcium 8.6, Total Bilirubin 0.5, AST 26, ALT 22, Alkaline Phosphatase 65, Troponin I < 0.01, Total Protein 6.5, Albumin 3.6, Globulin 2.9, Albumin/Globulin Ratio 1.2 07/18/17 1640: Urinalysis MOD H, Urine Color YEL, Urine Clarity HAZY H, Urine pH 6.0, Ur Specific [place] >= 1.030, Urine Protein 30 H, Urine Ketones 15 H, Urine Nitrite NEG, Urine Bilirubin NEG@ICTO, Urine Urobilinogen 0.2, Ur Leukocyte Esterase TRACE H, Ur Microscopic SEDIMENT EXAMINED, Urine WBC 1-3 H, Ur Epithelial Cells FEW, Urine Bacteria MOD H, Urine Mucus MOD H, Urine Hemoglobin NEG, Urine Glucose NEG 07/18/17 1550: D-Dimer High Sensitivty 781 H, CBC w Diff MAN DIFF ORDERED, RBC 4.49, MCV 84.3, MCH 28.4, MCHC 33.7, RDW 13.9, MPV 8.1, Gran % 94.9 H, Lymphocytes % 2.5 L, Monocytes % 2.5, Eosinophils % 0, Basophils % 0.1, Absolute Granulocytes 20.2 H , Segmented Neutrophils 90 H, Band Neutrophils 4, Absolute Lymphocytes 0.5 L, Lymphocytes 4 L, Monocytes 2, Absolute Monocytes 0.5, Absolute Eosinophils 0, Absolute Basophils 0, Platelet Estimate ADEQUATE, Stomatocytes FEW Microbiology 07/18 2342 STOOL: Cryptosporidium Antigen - RECD 07/18 234 STOOL: Giardia Antigen (LUIS) - RECD 07/18 234 STOOL: Clostridium difficile Toxin A & B - RECD 07/18 234 STOOL: Stool Culture - RECD 07/18 1751 BLOOD: Blood Culture - RECD 07/18 1658 BLOOD: Blood Culture - RECD 07/18 1640 URINE ROUT: Urine Culture - RECD Diagnostic Data EKG Results Sinus rhyhtm, HR 82, QTc 421, nonspecific T wave changes CXR Results The lungs are well expanded. No convincing lobar consolidation, pleural effusion, pulmonary edema, or pneumothorax. No mediastinal widening. Surgical clips overlie the lower thorax/upper abdomen. No acute osseous abnormalities. IMPRESSION: No evidence of pneumonia. Other Results Abd/pelvis CT LUNG BASES: The visualized lung bases are unremarkable. LIVER, GALLBLADDER, AND BILIARY TREE: The liver is normal in size, shape, and attenuation. No focal hepatic lesion or biliary ductal dilatation is present. The gallbladder is mildly distended with a small amount of echogenic sludge layering within the dependent gallbladder. No gallbladder wall thickening or pericholecystic fluid. The common bile duct is normal. PANCREAS: Unremarkable. SPLEEN: Unremarkable. ADRENAL GLANDS: Unremarkable. KIDNEYS AND URETERS: The kidneys are normal in size, shape, and attenuation. No hydronephrosis or hydroureter. Punctate 2 mm calcification lower pole left kidney is unchanged. No perinephric stranding. BLADDER: Unremarkable. GASTROINTESTINAL TRACT: Status post Onofre-en-Y gastric bypass. The small and large bowel are otherwise normal in course and caliber . No obstruction. No pericolonic inflammatory changes. Small hiatal hernia with additional postsurgical changes of the gastroesophageal junction. ABDOMINAL WALL: Stable postsurgical changes of the anterior abdominal wall with a prominent soft tissue calcification. Small umbilical fat-containing hernia, unchanged. LYMPH NODES: Normal. VASCULAR: Minimal atherosclerotic changes of the abdominal aorta and its branches. PELVIC VISCERA: Unremarkable. OSSEOUS STRUCTURES: Stable mild degenerative changes of the spine. No acute osseous finding. IMPRESSION: No acute abdominal/pelvic pathology. Stable punctate nonobstructive calculus in the left kidney. CTA Chest QUALITY OF STUDY/CONTRAST BOLUS: Satisfactory PULMONARY ARTERIES: No central or segmental pulmonary emboli. THORACIC AORTA: No aneurysm or dissection. LUNG: No focal consolidation, nodules or masses. Minimal gravity dependent changes of the lungs bilaterally. PLEURA: No pleural effusion or pneumothorax. MEDIASTINUM: Normal heart size. No pericardial effusion. No hilar or mediastinal lymphadenopathy. No evidence of septal bowing or right heart strain. CHEST WALL/AXILLA: No axillary or internal mammary lymphadenopathy. OSSEOUS STRUCTURES: No acute or suspicious osseous abnormality. UPPER ABDOMEN: Stable appearance of the abdomen from CT examination dated earlier today. No reflux of contrast into the hepatic veins to suggest elevated right heart pressures. IMPRESSION: No evidence of pulmonary embolism or acute thoracic pathology. VTE: Negative. Inpatient Sepsis Exam Sepsis Cardiac Exam: Regular Rate/Rhythm Sepsis Resp Exam: clear to ausculation Sepsis Cap Refill Exam: <2 Sec Sepsis Peripheral Pulse Exam: Normal Sepsis Peripheral Pulse Location: Radial Sepsis Skin Color Exam: Normal for Ethnicity Skin Temp/Moisture Exam: Warm/Dry Assessment/Plan Assessment: Patient is a 56-year-old female with a PMH significant for renal cell carcinoma, depression, chronic back pain, recurrent C. difficile, who presents to the [facility] ED complaining of diarrhea, fatigue, malaise for the past 2 days. She was treated for C. difficile with 1 week of vancomycin approximately 2-1/2 weeks ago, and her symptoms returned her PCP started her on Dificid. Vitals on presentation: T 98.9, P 96, RR 16, BP 97/67 Labs: WBC 21.3, H/H 12.8/37.8, platelets 237, granulocytes 94.9%, segmented neutrophils 90, bands 4, sodium 139, potassium 3.7, chloride 103, CO2 28, BUN 15 , creatinine 0.6, glucose 120, lactic acid 1.1, troponin <0.01, UA showed mucus, bacteriuria, trace LE, 15 ketones, Problem list #Sepsis secondary to severe C. difficile, Sirs criteria positive for WBCs and tachycardia with source likely C. difficile colitis #chronic medical problems including RCC, chronic back pain on Suboxone, depression Plan -Admit to general medicine floor -Follow-up studies -IV Flagyl and oral vancomycin -IV hydration with normal saline at 100 mL/hour -ID consult in a.m. -Continue home medications including sertraline, Suboxone -Follow-up urine toxicology Diet: Full liquid diet, advance as tolerated DVT prophylaxis E subcutaneous heparin, Alps CODE STATUS: Full code As Ranked By This Provider Problem List: 1. Clostridium difficile diarrhea 2. Sepsis Core Measures/Misc (10/26) Acute Coronary Syndrome ACS Diagnosis: No Congestive Heart Failure Congestive Heart Failure Diagnosis No Cerebrovascular Accident CVA/TIA Diagnosis: No VTE (View Protocol) VTE Risk Factors Age>40 No Mechanical VTE Prophylaxis d/t N/A MechProphylax Ordered No VTE Pharm Prophylaxis d/t NA PharmProphylax ordered Sepsis (View protocol) Sepsis Present: Yes If YES complete Sepsis Event Note If YES complete Sepsis Event Note Eri MORENO,Istnil 07/19/17 0020: Core Measures/Misc (10/26) Sepsis (View protocol) If YES complete Sepsis Event Note If YES complete Sepsis Event Note Resident Review Statement Resident Statement: examined this patient, discussed with international trade compliance manager, agreed with international trade compliance manager, discussed with family Other Findings: HPI 56/F with PMHx of depression, chronic back pain, renal cell carcinoma and multiple surgeries who presented complaining of watery non-bloody diarrhea. The patient was diagnosed with c.diff 6 years ago responded to treatment then relapsed in the same year. The 2nd C.diff persist for 12 months until it finally resolved. The pt was symptoms free until she developed diarrhea again around 20 days ago, she was treated with 7 days of oral vancomycin, her diarrhea improved until last night when suddenly she developed abdominal pain and 3 episodes of water non-bloody diarrhea, this time diarrhea is associated with fatigue and lethargy. The pt denies any other current active complains. For physical, labs and imaging refer to international trade compliance manager note Assessment: Has hx of C. difficile twice during the same year 6 years ago, her symptoms resolve completely until this started again around 3 weeks ago when she used clindamycin for oral abscess. She was treated with one week of vancomycin which in my opinion not sufficient given her history of recurrent C. difficile. The patient is septic given leukocytosis up to 20,000 and tachycardia > 90/min, she also meets criteria for severe C. difficile (leukocytosis). Her creatinine is normal and no sign of intra-abdominal inflammation or ileus, However given that she was on vanco recently, we will start the patient on oral vancomycin 125 mg 4 time a day and add IV Flagyl until the patient gets evaluated by ID in the morning, She may benefit from Vancomycin pulsed-tapered regimen or Fidaxomicin 200 mg orally twice daily for 10 days. Plan * Admit to general medicine floor * We will send for C. difficile * Vitals every 4 hours * IV fluid hydration * Oral vancomycin 125 mg 4 times a day * IV metronidazole 500 mg 3 times a day * Continue home medication including Sertraline & suboxone * ID consult * Clear liquid * DVT prophylaxis with ALPS & SC heprin * FC Jeremy MORENO, [facility] 07/19/17 0225: Core Measures/Misc (10/26) Sepsis (View protocol) If YES complete Sepsis Event Note If YES complete Sepsis Event Note Attending MD Review Statement Attending Statement Attending MD Statement: examined this patient, discuss w/resident/PA/CARDIOLOGY PHYSICIAN, agreed w/resident/PA/CARDIOLOGY PHYSICIAN, reviewed images, amended to note Attending Assessment/Plan: 56 yo F with h/o chronic pain and opiate dependence now on suboxone, depression, nephrolithiasis, recurrent Cdiff presents to ER for increasing malaise, weakness , profuse watery diarrhea and abdominal cramps over past 2 days. Patient was first diagnosed with Cdiff in 2010 where in she had a prolonged course for over 1 year. She was doing well and had no recurrence until about 3 weeks ago when she developed diarrhea after finishing a course of clindamycin for dental abscess. The on-call PCP prescribed her 1 week course of oral vancomycin with resolution of symptoms. However last night, she developed abdominal cramping and profuse watery nonbloody diarrhea, >3 episodes today. PCP prescribed her Dificid (fidaxomicin) which she took 3 doses of. But, she did not feel right. She reports a fever of 101, denies nausea, vomiting, headache, lightheadedness or palpitations. Colonoscopy (2009): proctosigmoiditis and external hemorrhoids and one nonbleeding AVM in the cecum. Pathology shows mild acute and chronic proctitis. Of note, patient has a h/o left renal cell carcinoma for which she underwent laparoscopic ?resection/ ablation few years ago. She apparently has a recurrence of the tumor and is scheduled for follow up surgery at [place]. Vitals: Tmax 100.3, HR 80-90's, BP 97/67 -->101/48 --> 96/51 --> 109/59, sats 94 % RA. Exam: AAO, very dry mucosa, Neck supple, Chest clear, Heart S1S2 regular, Abdo soft, some tenderness in the left quadrant, BS+. Labs: WBC 21.3, Plt 237, H/H 12.8/37.8, bands 4, glucose 120, elevated D-dimer, lactic acid 1.1, trop neg. UA not impressive for UTI. CT abd/pelvis: gallbladder is mildly distended with small amount of echogenic sludge layering, no wall thickening or pericholecystic fluid, nonobstructive calculus in left kidney, no acute pathology. CXR: no pneumonia. CTA chest: no PE. EKG: sinus rhythm, T-wave inversions/ flattening in inferior leads and V3-6 ( slightly more prominent than on previous EKG), Qtc 421. Assessment and plan: 1. Sepsis, hypotension responded to IV fluids 2. Recurrent Cdiff colitis 3. History of proctosigmoiditis 4. Chronic pain syndrome on Suboxone 5. Nonspecific EKG changes 6. CT evidence of mild GB distension with no RUQ pain and normal LFTs - Admit to General medicine - Place on contact precuations - Check stool Cdiff, if negative check PCR - Initiate PO Vancomycin 125 QID. Guidelines recommend the combination for fulminant Cdiff with ileus or megacolon. Patient does not have ileus but she was hypotensive upon ER arrival hence we will continue with IV flagyl in addition to PO Vancomycin. - IV fluid hydration - Resume suboxone but monitor BP - Clear liquid diet for now - ID consult - Check urine tox screen - Repeat EKG and troponin in AM DVT ppx Lovenox. Full code.
[2017-07-19 00:01] VITALS: BP 157/58
--- NOTE | 2017-07-19 01:40 | Admission Certification ---
Admission Certification Certification Statement - As attending physician, I certify that at the time of - admission, based on clinical presentation, severity of - symptoms, need for further diagnostic testing and - therapeutic interventions, and risk of adverse outcomes - without in-hospital treatment, in my clinical assessment, - this patient requires an acute hospital stay for a minimum - of two nights or longer. I have also considered psychsocial - factors such as support system, advanced age, financial - issues, cognitive issues, and failed out-patient treatments, - past re-admission history, safety of patient, and lack of - compliance as applicable. Specific rationale supporting this admission is: Recurrent Cdiff
[2017-07-19 04:12] VITALS: BP 119/59
--- NOTE | 2017-07-19 08:35 | PN- Housestaff ---
Yamilka MORENO,Jillian 07/19/17 0835: Subjective Follow-up For: Clostridium dificile Subjective: Patient was seen and examined today. Patient reports she had 3 bowel movements - watery diarrhea. Reports abdominal cramps/pain with bowel movements. Reports fever/chills, nausea but no vomitting. Has a poor appetite, but tolerating small amount of liquid and yogurt. Per nursing patient refusing further blood draws. Patient reports she is a hard stick and does not want any further draws. Unable to draw CBC today. Nursing reported patient took her own suboxone this AM. Review of Systems Constitutional: Reports: see HPI. Objective Last 24 Hrs of Vital Signs/I&O Vital Signs Date Time Temp Pulse Resp B/P B/P Pulse O2 O2 Flow FiO2 Mean Ox Delivery Rate 07/19 0412 99.6 80 20 119/59 95 Room Air 07/19 0001 100.3 60 22 157/58 94 Room Air 07/18 2249 109/59 07/18 2213 99.1 88 98/58 95 07/18 2125 98.9 79 19 96/51 95 07/18 2002 99.1 81 17 101/54 94 Room Air 07/18 1824 18 98 Nasal 2.0L Cannula 07/18 1818 98.8 79 18 95/48 90 Room Air 07/18 1519 98.9 96 16 97/67 97 Room Air Intake & Output 07/19 1600 07/19 0800 07/19 0000 Intake Total 940 120 Output Total 350 Balance 940 -230 Intake, IV 700 Intake, Oral 240 120 Number 1 Bowel Movements Output, Urine 350 Patient 158 lb 158 lb Weight Physical Exam General Appearance: Alert, Oriented X3, Cooperative, No Acute Distress Skin Temp/Moisture Exam: Warm/Dry Sepsis Skin Exam (color): Normal for Ethnicity HEENT: Atraumatic, Mucous Membr. moist/pink Cardiovascular: Regular Rate, Normal S1, Normal S2, No Murmurs Lungs: Clear to Auscultation, Normal Air Movement Abdomen: Normal Bowel Sounds, Soft, mild tenderness to deep palpation at epigastric region Neurological: Normal Speech, Sensation Intact, Cranial Nerves 3-12 NL Extremities: No Clubbing, No Cyanosis, No Edema, Normal Pulses, No Tenderness/ Swelling, right - no swelling, tenderness or erythema seen at site of IV line Vascular: Normal Pulses, Pulses Symmetrical Current Medications: Current Medications Sig/Meghann Start time Last Medication Dose Route Stop Time Status Admin Acetaminophen 0 .STK-MED ONE 07/18 1614 DC IV Acetaminophen 1,000 MG ONCE ONE 07/18 1600 DC 07/18 N/A 1 UNIT IV 07/18 1614 1700 Buprenorphine/ 2 TAB 1400 07/19 1400 AC Naloxone SL Buprenorphine/ 1 TAB 0800 07/19 0800 AC Naloxone SL Heparin Sodium 5,000 UNIT Q8 07/19 0600 AC 07/19 (Porcine) SC 0624 Metronidazole 500 MG IQ8 07/19 0800 DC N/A 1 UNIT IV Metronidazole 500 MG Q8 07/19 0600 AC 07/19 N/A 1 UNIT IV 0625 Metronidazole 500 MG ONCE ONE 07/18 1945 DC 07/18 N/A 1 UNIT IV 07/18 Sertraline HCl 50 MG AT BEDTIME 07/19 2100 PO Sertraline HCl 50 MG DAILY 07/19 09 DC PO Sodium Chloride 1,000 ML Q10H 07/19 0015 AC 07/19 IV 07/19 2013 004 Sodium Chloride 1,000 ML BOLUS ONE 07/18 2130 DC 07/18 IV 07/18 2229 2129 Sodium Chloride 1,000 ML BOLUS ONE 07/18 1900 DC / IV 07/18 1959 1919 Sodium Chloride 1,000 ML BOLUS ONE 07/18 1645 DC 07/18 IV 07/18 1744 1846 Sodium Chloride 1,000 ML BOLUS ONE 07/18 1600 MO 07/18 IV 07/18 1659 1648 Vancomycin HCl 125 MG Q6H 07/19 0730 AC 07/19 PO 0857 Vancomycin HCl 125 MG Q6 07/19 0015 DC 07/19 PO 0124 Last 24 Hrs of Lab/Luis Results Last 24 Hrs of Labs/Mics: Laboratory Tests 07/19/17 0745: Anion Gap 7, Estimated GFR > 60, BUN/Creatinine Ratio 22.0, Troponin I < 0.01 07/19/17 0600: Sodium Cancelled, Potassium Cancelled, Chloride Cancelled, Carbon Dioxide Cancelled, Anion Gap Cancelled, BUN Cancelled, Creatinine Cancelled, BUN/ Creatinine Ratio Cancelled 07/18/17 1828: Lactic Acid Cancelled 07/18/17 1658: Anion Gap 9, Estimated GFR > 60, BUN/Creatinine Ratio 25.0, Glucose 120 H, Lactic Acid 1.1, Calcium 8.6, Total Bilirubin 0.5, AST 26, ALT 22, Alkaline Phosphatase 65, Troponin I < 0.01, Total Protein 6.5, Albumin 3.6, Globulin 2.9, Albumin/Globulin Ratio 1.2 07/18/17 1640: Urine Opiates Screen < 100, Methadone Screen < 40, Barbiturate Screen < 60, Ur Phencyclidine Scrn < 6.00, Amphetamines Screen 128, U Benzodiazepines Scrn 169, Urine Cocaine Screen < 50, Urine Cannabis Screen < 5.00, Urinalysis MOD H, Urine Color YEL, Urine Clarity HAZY H, Urine pH 6.0, Ur Specific [place] >= 1.030, Urine Protein 30 H, Urine Ketones 15 H, Urine Nitrite NEG, Urine Bilirubin NEG@ICTO, Urine Urobilinogen 0.2, Ur Leukocyte Esterase TRACE H, Ur Microscopic SEDIMENT EXAMINED, Urine WBC 1-3 H, Ur Epithelial Cells FEW, Urine Bacteria MOD H, Urine Mucus MOD H, Urine Hemoglobin NEG, Urine Glucose NEG 07/18/17 1550: D-Dimer High Sensitivty 781 H, CBC w Diff MAN DIFF ORDERED, RBC 4.49, MCV 84.3, MCH 28.4, MCHC 33.7, RDW 13.9, MPV 8.1, Gran % 94.9 H, Lymphocytes % 2.5 L, Monocytes % 2.5, Eosinophils % 0, Basophils % 0.1, Absolute Granulocytes 20.2 H , Segmented Neutrophils 90 H, Band Neutrophils 4, Absolute Lymphocytes 0.5 L, Lymphocytes 4 L, Monocytes 2, Absolute Monocytes 0.5, Absolute Eosinophils 0, Absolute Basophils 0, Platelet Estimate ADEQUATE, Stomatocytes FEW Microbiology 07/18 2342 STOOL: Cryptosporidium Antigen - RECD 07/18 2342 STOOL: Giardia Antigen (LUIS) - RECD 07/18 2342 STOOL: Clostridium difficile Toxin A & B - RECD 07/18 2342 STOOL: Stool Culture - RECD 07/18 175 BLOOD: Blood Culture - RECD 07/18 1658 BLOOD: Blood Culture - RECD 07/18 1640 URINE ROUT: Urine Culture - RES Assessment/Plan Assessment: Patient is a 56 y/o female with PMH of C. difficile twice during the same year 6 years ago, her symptoms resolve completely until this started again around 3 weeks ago when she used clindamycin for oral abscess. She was treated with one week of vancomycin which in my opinion not sufficient given her history of recurrent C. difficile. The patient is septic given leukocytosis up to 20,000 and tachycardia > 90/min, she also meets criteria for severe C. difficile ( leukocytosis). Her creatinine is normal and no sign of intra-abdominal inflammation or ileus, However given that she was on vanco recently, we will start the patient on oral vancomycin 125 mg 4 time a day and add IV Flagyl. Patient today spiked a low grade fever of 100.3 on antibiotic therapy, continuing to have watery bowel movement. Patient is a hard stick and is refusing any further blood draws. Unable to assess WBC count today. As this is patient's 4th bout of C.dif will consult ID and GI. Patient may benefit from a fecal transplant. Plan * Admitted to general medicine floor * Follow up C. difficile and stool cultures * Vitals every 4 hours * IV fluid hydration, PO intake as tolerated * Oral vancomycin 125 mg 4 times a day * IV metronidazole 500 mg 3 times a day * Continue home medication including Sertraline & suboxone * ID and GI consulted * Clear liquid * DVT prophylaxis with ALPS & SC heprin * FC Problem List: 1. Clostridium difficile diarrhea Pain Ratin Pain Location: abdomen Pain Goal: Pain 4 or less Pain Plan: per pain pathway Tomorrow's Labs & Rationales: cbc bep Jenny Woodruff MD 07/19/17 0932: Attending MD Review Statement Attending Statement Attending MD Statement: examined this patient, discuss w/resident/PA/DIAL MAKER, agreed w/resident/PA/DIAL MAKER, reviewed EMR data (avail) Attending Assessment/Plan: 56F PMH chronic pain and opiate dependence now on suboxone, depression, nephrolithiasis, recurrent Cdiff, recently diagnosed with C.diff after taking Clindamycin and placed on PO Flagyl with mild improvement, then switched to Fidaxomicin, now with continued watery diarrhea. Febrile 100.3 overnight, vitals stable, WBC 21. Plan - Continue on general medicine - Continue Vanco and Flagyl - ID consult - Stool culture - Continue home meds - DVT PPx
[2017-07-19 15:07] VITALS: BP 130/70
--- NOTE | 2017-07-19 16:03 | Cons- Gastroenterology ---
General Information and HPI Consulting Request Date of Consult: 07/19/17 Requested By: COREEN ROUSSEAU MD Reason for Consult: I returned to [facility] today, after being called by the hospitalist service in the early afternoon, to assess this patient with diarrhea and history of recurrent C. difficile, HD # 2. Source of Information: patient, old records (limited) Exam Limitations: no GI or internal medicine records in [place], fair hx, agitated, anxious, & depressed; difficult for pt to focus on timeline of events over the past few yrs. History of Present Illness: 56 y/o female, non-HTN, non-DM, followed by Dr. Haim Padilla for primary care in [place], [place], Dr. Michael Valero for urology at [facility], Dr. Jorje Rose for IR at [facility], & a psychiatrist whose name she cannot recall, with anxiety, depression (on Zoloft), chronic back/left renal pain with chronic pain syndrome & opioid dependence (on Suboxone), post hernia repairs 2009 & 2011, gastric banding x 2 ("slipped"), f/b Onofre-en-Y GJ bypass 02/[address] Sotelo at [facility] (5'3"- max wt 286 lbs-> postop nguyen 130 lbs, currently 158 lbs), hx nephrolithiasis (Ca2+ oxalate) & hx renal cell Ca. 11/16/12: Left laparoscopic cryoablation of left upper pole renal mass at [facility], per Dr. Michael Valero (bx: clear cell renal cell Ca), w/o additional tx. The patient claimed she was recently told of a recurrence of the left renal Ca, & is to have a procedure for this by Dr. Rose at [facility] IR on 08/04/17. Additionally, she has had multiple hernia repairs, x 2, left renal stents x 2 (removed), & left nephrostomy bag (removed). There was no FHx colon Ca or IBD. Weak +FHx gastric Ca (MGM- 60's). 10/16/09: Baseline & only colonoscopy to cecum per Dr. Lester for bloody diarrhea - small external hemorrhoids with patchy erythema to 30 cm, c/w endoscopic picture of proctosigmoiditis, plus 1 focal non-bleeding cecal AVM. Random bxs of right colon & left colon- negative. Bxs of sigmoid & rectosigmoid- negative. Rectal bxs- *mild acute & chronic proctitis. She was put on an empiric trial of Rowasa enema 4g Qhs by Dr. Trevon casanova. *No stool workup in computer from then. * No other GI records available. 08/19/10: Outpt + C. diffficile per [facility], with "prolonged course"- * patient unsure of tx regimen then. There are no GI or internal medicine records in [facility]. 05/24/11: BC x 2: + E. Coli bacteremia, per [facility] (pansensitive), in the setting of nephrolithiasis, & the patient was transferred from the [facility] to [facility]. *The patient is a fair historian and was somewhat agitated, anxious, & depressed. It was difficult for her to focus. Limited records were available at [facility]. She reportedly had recurrent bouts of C. difficile over the past few years, since her episode of 08/19/10: + C. difficile. She had not been compliant with GI office follow-up since, despite "recurrent bouts of C. difficile", apparently managed by her PMD. *She was taking large amounts of Advil for her chronic back pain/left kidney issues. She claimed she was then txd for C. difficile by her PMD on & off x 1 year as an outpt, "a few years ago", apparently with Flagyl, then Vanco, then Dificid, the latter of which "helped". She was asymptomatic since then from a diarrheal perspective x few yrs, until she took Clindamycin for a dental abscess, towards the end of 05/2017. She stated she developed dirrhea 1 week after stopping the Clindamycin, in mid-06/2017, & "had + C. difficile again", as per her PMD. 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 Her PMD had called in Dificid, but she only took 1-2 doses of this, then came to the [facility]. *She had never been on a protracted Vancomycin taper. 07/18/17: + C. difficile toxin A & B, per [facility]. She presented to the [facility] 07/18/17 at 2:59 p.m., stating she had + C. difficile, that she was being txd for, as above. Upon arrival, BP 97/67, P 96, R 16, T 98.9 (Tm in ER 99.1, then 100.3 overnight) , O2 sat RA 97% She was given IV NS in the ER with improvement of BP, along with Tylenol & Flagyl 500 mg IV, after being cultured. She claimed diarrhea was too numerous to count, & independent of po intake, with occasional nocturnal stools. She had scant painless rectal bleeding after defecation of brown stool. There was no melena. She denied any significant abdominal pain, but had minimal subjective tenderness in the LLQ on exam, without any peritoneal signs. She had mild nausea, but no vomiting. She admitted to low-grade fever with questionable chills. There were no rashes or acute arthralgias. She was taking large amounts of Advil, as above. She denied any raw food ingestion, recent travel, or point source, by history. No other relatives with whom she lives had any GI symptoms. She noted mild unintentional weight loss x past few days TOUR CONSULTANT. Her appetite was fair. There was no obstipation, constipation, reflux, early satiety, hematemesis, odynophagia, or dysphagia. She denied any symptoms of UTI , gross hematuria, jaundice, acute bone pain, confusion, or symptoms of URI. She is a 5-pack-year cigarette smoker. She denied any EtOH or illicit street drugs, although she was on Suboxone. The patient was admited to general medicine 07/18/17 & was rxd Vancomycin 125 mg po Q6h & IV Flagyl 500 mg Q8h, plus IV NS @ 100 cc/hr. *She had leukocytosis ( WBC 21K) with a left shift on exam on admission, with HCT 37.8, nl HCO3, n lactate, GFR > 60, nl LFTs. She had an elevated admission d-dimer 781, with CTA chest- negative for PE. Admission CT AP- without colitis or megacolon (*see imaging studies), post G-J bypsaa, incidental umbilical hernia & biliary sludge, & 2 mm non-obst left renal stone (*no recurrent left renal mass seen, without IV cont). 07/18/17: *+ C. difficile toxin A & B. 07/18/17: 1150- Admission labs- WBC 21.3 (90S/4B/4L/2M), H/H 12.8/37.8, MCV 84.3 , RDW 13.9, PLT 237, glu 120, BUN/Cr 15/0.6, GFR > 60, Na 139, K 3.7, HCO3 28, AG 9, nl lactate 1.1, Ca 8.6, alb 3.6, glob 2.9,TBil 0.5, alk phos 65, AST 26, ALT 22. troponin < 0.01, *elev d-Dimer 781 07/18/17: U/A- hazy, yellow, > 1.030, 6.0, 1-3 WBC, mod bact, few epith, mod amorph, neg glu, 15+ ketone, neg Hgb, neg icto, urobil 0.2, 30+ prot; neg nitrite, tr esterase. 07/18/17: Utox- negative. 07/18/17: UC- neg x 1 day. 07/18/17: BC x 2- neg x 1 day. 07/18/17: *+ C. difficile toxin A & B. 07/18/17: *Stool Giardia Ag- neg, Cryptosporidium Ag- neg. 07/18/17: *Stool C&S, Shiga toxin- *pending. 07/19/17: 0745- BUN/Cr 11/0.5, GFR > 60, Na 139, K 3.6, HCO3 24, AG 7, troponin < 0.01 (*The patient was a hard stick & refused CBC on 07/19/17). 07/18/17: EKG- NSR @ 82, nl axis, prob LAE, NSST diffusely (*no S1QT3 re: elevated d-Dimer). 07/18/17: CT ABD & PELVIS W/O IV CONTRAST (per ER)- Mildly distended GB with small amount of sludge. No GB wall thickening or pericholecystic fluid. Normal CBD. Normal liver. Normal pancreas & spleen (within the limits of a non- IV cont study) Post Onofre-en-Y GJ bypass. Small HH with postop change at [facility]. Otherwise nl SB & LB. *No gross colitis or megacolon. Postop change anterior abdominal wall, with small umbilical fat-containing hernia. No acute abdominal/pelvic pathology. Stable 2 mm punctate nonobstructive calculus in the lower pole left kidney. No hydronephrosis. (*No recurrent left renal mass seen, without IV cont). Mild DJD. 07/18/17: XRY-PORTABLE CHEST XRAY- No evidence of pneumonia. 07/18/17: CT ANGIOGRAM OF THE CHEST WITH AND WITHOUT CONTRAST (CT PULMONARY ANGIOGRAM FOR PE)- No evidence of pulmonary embolism or acute thoracic pathology. VTE: Negative. Allergies/Medications Allergies: Coded Allergies: latex (Mild, BURNING SENSATION 12/24/15) Home Med List: Buprenorphine HCl/Naloxone HCl (Suboxone 8 MG-2 MG Sl Film) 8 MG-2 MG FILM 1.5 STR SL DAILY UNKNOWN (Reported) Sertraline HCl 50 MG TABLET 1 TAB PO DAILY MENTAL HEALTH (Reported) Current Medications: Current Medications Sig/Meghann Start time Last Medication Dose Route Stop Time Status Admin Buprenorphine/ 2 TAB 5PM 07/19 1700 AC Naloxone SL Buprenorphine/ 2 TAB 1400 / 1400 DC Naloxone SL Buprenorphine/ 1 TAB 0800 07/19 0800 AC Naloxone SL Heparin Sodium 5,000 UNIT Q8 07/19 0600 AC 07/19 (Porcine) SC 0624 Metronidazole 500 MG IQ8 07/19 0800 DC N/A 1 UNIT IV Metronidazole 500 MG Q8 07/19 0600 AC 07/19 N/A 1 UNIT IV 1409 Metronidazole 500 MG ONCE ONE 07/18 1945 DC 07/18 N/A 1 UNIT IV 07/18 Sertraline HCl 50 MG AT BEDTIME 07/19 2100 AC PO Sertraline HCl 50 MG DAILY 07/19 0900 DC PO Sodium Chloride 1,000 ML Q10H 07/19 0015 AC 07/19 IV 07/19 2014 1051 Sodium Chloride 1,000 ML BOLUS ONE 07/18 2130 DC / IV 07/189 Sodium Chloride 1,000 ML BOLUS ONE 07/18 1900 DC / IV 07/18 195 1919 Sodium Chloride 1,000 ML BOLUS ONE 07/18 1645 DC / IV 07/18 1744 1846 Vancomycin HCl 125 MG Q6H 07/19 0730 AC 07/19 PO 1411 Vancomycin HCl 125 MG Q6 07/19 0015 DC 07/19 PO 0124 Past History Travel History Traveled to [place] past 21 day No Medical History Blood Transfusion Hx: No Neurological: NONE EENT: NONE Cardiovascular: NONE Respiratory: NONE Gastrointestinal: hx C. 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 Sotelo at [facility], hernia repair x 2 (? 2009 & 2011), 11/16/12: Lef lap cryoablation of upper pole left renal mass with bx: clear cell RC Ca; left renal stent x 2 (removed); left nephrostomy tube ( removed) Family History Relations & Conditions If Any: MOTHER ([employer]). Age 86. FATHER ([employer]). Age 86. MGM, , Age 60+; Cause: Gastric cancer. Psychosocial History Where Do You Live? Home Who Do You Live With? child, rosa maria & 1 of her sons Services at Home: None Primary Language: Estonian Smoking Status: Current Everyday Smoker ETOH Use: denies use Illicit Drug Use: denies illicit drug use (on rx Suboxone) Living Will? no Power of Field Agronomist/HCP? no Other Social History: . 5 pk yr cigarette smoker, currently 1/4 ppd. No EtOH. No illicit street drugs, but on rx Suboxone. Lives with her boyfriend ("rosa maria") & 1 of her sons. 2 sons- [employer]. 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 Functional Ability ADLs Independent: dressing, eating, toileting, bathing. Ambulation: independent IADLs Independent: shopping, housework, finances, food prep, telephone, transportation , medication admin. Employment History Employment: Employed Profession/Employer: Drives a school bus Review of Systems Review of Systems: Full 14 point ROS otherwise noncontributory & as above. Review of Systems Constitutional: Reports: chills, fever, unexplained weight loss (scant). Denies: diaphoresis, malaise, weakness. EENTM: Denies: blurred vision, double vision, visual changes, eye pain, eye drainage, eye tearing, icterus, ear discharge, ear pain, ear redness, hearing changes, nasal congestion, epistaxis, nasal pain, throat pain, throat swelling, mouth pain, tooth pain. Cardiovascular: Denies: chest pain, edema, orthopena, palpitations, peripheral edema, syncope. Respiratory: Denies: cough, hemoptysis, orthopnea, short of breath, sputum production, stridor, wheezing. GI: Reports: diarrhea, nausea (minimal), bloody stool (mild). Denies: abdominal pain, bloating, constipation, distention, bowel incontinence, melena, changes in stool, vomiting, steatorrhea. Genitourinary: Reports: pain (chronic left renal sx). Denies: discharge, dysuria, frequency, hematuria, hesitation, nocturia, urgency. Musculoskeletal: Reports: back pain (chronic). Denies: gout, joint pain, joint swelling, muscle pain, muscle stiffness, neck pain. Skin: Denies: cysts, change in skin color, change in hair/nails, dryness, erythema, jaundice, lesions, lymphangitis, lumps, moles, rash. Neurological/Psychological: Reports: anxiety, depressed, emotional problems. Denies: ataxia, cognitive dysfunction, confusion, dementia, headache, numbness, paresthesia, pre-existing deficit, petit mal seizures, tingling, tremors, tonic-clonic seizures, unable to move lower ext, unable to move upper ext, weakness. Hematologic/Endocrine: Denies: bruising, bleeding, polyuria, polydipsia. Immunologic/Allergic: Denies: splenectomy, HIV/AIDS, lymphadenopathy. All Other Systems: Reviewed and Negative Exam & Diagnostic Data Vital Signs and I&O Vital Signs Date Time Temp Pulse Resp B/P B/P Pulse O2 O2 Flow FiO2 Mean Ox Delivery Rate 07/19 1507 98.6 83 20 130/70 98 07/19 1230 98.9 07/19 0412 99.6 80 20 119/59 95 Room Air 07/19 0001 100.3 60 22 157/58 94 Room Air 07/18 2249 109/59 07/18 2213 99.1 88 98/58 95 07/18 2125 98.9 79 19 96/51 95 07/18 2001 99.1 81 17 101/54 94 Room Air 07/18 1824 18 98 Nasal 2.0L Cannula 07/18 1818 98.8 79 18 95/48 90 Room Air Intake & Output 07/19 1600 07/19 0400 07/18 1600 07/18 0400 07/17 1600 07/17 0400 Intake Total 2440 120 Output Total 350 Balance 2440 -230 Intake, IV 1600 Intake, Oral 840 120 Number 3 Bowel Movements Output, Urine 350 Patient 158 lb 158 lb 158 lb Weight Physical Exam: Well-developed, well-nourished, slightly agitated, anxious, & depressed female, non-toxic appearing, in no apparent distress. Sclera anicteric. Conjunctiva pink. Oropharynx clear. No oral thrush. No aphthous ulcers. There is no adenopathy, thyromegaly, or JVD. No peripheral stigmata of inflammatory bowel disease or chronic liver disease on exam. No spiders on the anterior chest wall. No CVA tenderness. No point spine tenderness. Breast & pelvic exams: API. Lungs: clear to A&P. No wheezing, rales, or rhonchi. Heart exam: regular rate rhythm, S1 and S2, without any murmur. Abdominal exam: normal bowel sounds, soft belly, minimal LLQ tenderness on deep palpation, without guarding or rebound. Small, reducible umbilical hernia. Otherwise, no mass. No organomegaly. Negative Agosto sign.Clinically, without megacolon. No fluid shift. No pulsatile mass. No epigastric bruit. Digital rectal exam: refused by patient. Extremities: without C, C, or E. No palpable cords. No rash. No acute arthropathy. No palmar erythema. No Dupuytren's contractures. Distal pulses 2+ bilaterally. DTRs 2+ bilaterally. Alert and oriented x 3. Motor 5/5 B/L. No tremor. No astrerixis. Results Pertinent Lab Results: Laboratory Tests 07/19 07/19 07/18 07/18 0745 0600 1828 1658 Chemistry Sodium (137 - 145 mmol/L) 139 Cancelled 139 Potassium (3.5 - 5.1 mmol/L) 3.6 Cancelled 3.7 Chloride (98 - 107 mmol/L) 109 H Cancelled 103 Carbon Dioxide (22 - 30 mmol/L) 24 Cancelled 28 Anion Gap (5 - 16) 7 Cancelled 9 BUN (7 - 17 mg/dL) 11 Cancelled 15 Creatinine (0.5 - 1.0 mg/dL) 0.5 Cancelled 0.6 Estimated GFR (>60 ml/min) > 60 > 60 BUN/Creatinine Ratio (7 - 25 %) 22.0 Cancelled 25.0 Glucose (65 - 99 mg/dL) 120 H Lactic Acid (0.7 - 2.1 mmol/L) Cancelled 1.1 Calcium (8.4 - 10.2 mg/dL) 8.6 Total Bilirubin (0.2 - 1.3 mg/dL) 0.5 AST (14 - 36 U/L) 26 ALT (9 - 52 U/L) 22 Alkaline Phosphatase (<127 U/L) 65 Troponin I (< 0.11 ng/ml) < 0.01 < 0.01 Total Protein (6.3 - 8.2 g/dL) 6.5 Albumin (3.5 - 5.0 g/dL) 3.6 Globulin (1.9 - 4.2 gm/dL) 2.9 Albumin/Globulin Ratio (1.1 - 2.2 %) 1.2 07/18 07/18 1640 1550 Coagulation D-Dimer High Sensitivty (0 - 243 ng/ml) 781 H Hematology CBC w Diff MAN DIFF ORDERED WBC (4.8 - 10.8 /CUMM) 21.3 H RBC (4.20 - 5.40 /CUMM) 4.49 Hgb (12.0 - 16.0 G/DL) 12.8 Hct (37 - 47 %) 37.8 MCV (81.0 - 99.0 FL) 84.3 MCH (27.0 - 31.0 PG) 28.4 MCHC (33.0 - 37.0 G/DL) 33.7 RDW (11.5 - 14.5 %) 13.9 Plt Count (130 - 400 /CUMM) 237 MPV (7.4 - 10.4 FL) 8.1 Gran % (42.2 - 75.2 %) 94.9 H Lymphocytes % (20.5 - 51.1 %) 2.5 L Monocytes % (1.7 - 9.3 %) 2.5 Eosinophils % (0 - 5 %) 0 Basophils % (0.0 - 2.0 %) 0.1 Absolute Granulocytes (1.4 - 6.5 /CUMM) 20.2 H Segmented Neutrophils (42.2 - 75.2 %) 90 H Band Neutrophils (0.0 - 5.0 %) 4 Absolute Lymphocytes (1.2 - 3.4 /CUMM) 0.5 L Lymphocytes (20.5 - 51.1 %) 4 L Monocytes (1.7 - 9.3 %) 2 Absolute Monocytes (0.10 - 0.60 /CUMM) 0.5 Absolute Eosinophils (0.0 - 0.7 /CUMM) 0 Absolute Basophils (0.0 - 0.2 /CUMM) 0 Platelet Estimate (ADEQUATE) ADEQUATE Stomatocytes FEW Toxicology Urine Opiates Screen (>2000 NG/ML) < 100 Methadone Screen (>300 NG/ML) < 40 Barbiturate Screen (>200 NG/ML) < 60 Ur Phencyclidine Scrn (>25 NG/ML) < 6.00 Amphetamines Screen (>1000 NG/ML) 128 U Benzodiazepines Scrn (>200 NG/ML) 169 Urine Cocaine Screen (>300 NG/ML) < 50 Urine Cannabis Screen (>50 NG/ML) < 5.00 Urines Urinalysis MOD H Urine Color (YEL,AMB,STR) YEL Urine Clarity (CLEAR) HAZY H Urine pH (5.0 - 8.0) 6.0 Ur Specific Binger (1.001 - 1.035) >= 1.030 Urine Protein (NEG,<30 MG/DL) 30 H Urine Ketones (NEG) 15 H Urine Nitrite (NEG) NEG Urine Bilirubin (NEG) NEG@ICTO Urine Urobilinogen (0.1 - 1.0 EU/dl) 0.2 Ur Leukocyte Esterase (NEG) TRACE H Ur Microscopic SEDIMENT EXAMINED Urine WBC (0 - 2 /HPF) 1-3 H Ur Epithelial Cells (NONE,FEW) FEW Urine Bacteria (NEG/NONE) MOD H Urine Mucus (FEW,NONE) MOD H Urine Hemoglobin (NEG) NEG Urine Glucose (N MG/DL) NEG Imaging/Other Studies: 07/18/17: EKG- NSR @ 82, nl axis, prob LAE, NSST diffusely (*no S1QT3 re: elevated d-Dimer). 07/18/17: CT ABD & PELVIS W/O IV CONTRAST (per ER)- Mildly distended GB with small amount of sludge. No GB wall thickening or pericholecystic fluid. Normal CBD. Normal liver. Normal pancreas & spleen (within the limits of a non- IV cont study) Post Onofre-en-Y GJ bypass. Small HH with postop change at [facility]. Otherwise nl SB & LB. *No gross colitis or megacolon. Postop change anterior abdominal wall, with small umbilical fat-containing hernia. No acute abdominal/pelvic pathology. Stable 2 mm punctate nonobstructive calculus in the lower pole left kidney. No hydronephrosis. (*No recurrent left renal mass seen, without IV cont). Mild DJD. 07/18/17: XRY-PORTABLE CHEST XRAY- No evidence of pneumonia. 07/18/17: CT ANGIOGRAM OF THE CHEST WITH AND WITHOUT CONTRAST (CT PULMONARY ANGIOGRAM FOR PE)- No evidence of pulmonary embolism or acute thoracic pathology. VTE: Negative. Assessment/Plan Assessment/Recommendations: 56 y/o female, non-HTN, non-DM, followed by Dr. Haim Padilla for primary care in [place], [place], Dr. Michael Valero for urology at [facility], Dr. Jorje Rose for IR at [facility], & a psychiatrist whose name she cannot recall, with anxiety, depression (on Zoloft), chronic back/left renal pain with chronic pain syndrome & opioid dependence (on Suboxone), post hernia repairs 2009 & 2011, gastric banding x 2 ("slipped"), f/b Onofre-en-Y GJ bypass 02/[address] Sotelo at [facility] (5'3"- max wt 286 lbs-> postop nguyen 130 lbs, currently 158 lbs), hx nephrolithiasis (Ca2+ oxalate) & hx renal cell Ca. 11/16/12: Left laparoscopic cryoablation of left upper pole renal mass at [facility], per Dr. Michael Valero (bx: clear cell renal cell Ca), w/o additional tx. The patient claimed she was recently told of a recurrence of the left renal Ca, & is to have a procedure for this by Dr. Rose at [facility] IR on 08/04/17. Additionally, she has had multiple hernia repairs, x 2, left renal stents x 2 (removed), & left nephrostomy bag (removed). There was no FHx colon Ca or IBD. Weak +FHx gastric Ca (MGM- 60's). 10/16/09: Baseline & only colonoscopy to cecum per Dr. Lester for bloody diarrhea - small external hemorrhoids with patchy erythema to 30 cm, c/w endoscopic picture of proctosigmoiditis, plus 1 focal non-bleeding cecal AVM. Random bxs of right colon & left colon- negative. Bxs of sigmoid & rectosigmoid- negative. Rectal bxs- *mild acute & chronic proctitis. She was put on an empiric trial of Rowasa enema 4g Qhs by Dr. Lester then. *No stool workup in computer from then. * No other GI records available. 08/19/10: Outpt + C. diffficile per [facility], with "prolonged course"- * patient unsure of tx regimen then. There are no GI or internal medicine records in [facility]. 05/24/11: BC x 2: + E. Coli bacteremia, per [facility] (pansensitive), in the setting of nephrolithiasis, & the patient was transferred from the [facility] to [facility]. *The patient is a fair historian and was somewhat agitated, anxious, & depressed. It was difficult for her to focus. Limited records were available at [facility]. She reportedly had recurrent bouts of C. difficile over the past few years, since her episode of 08/19/10: + C. difficile. She had not been compliant with GI office follow-up since, despite "recurrent bouts of C. difficile", apparently managed by her PMD. *She was taking large amounts of Advil for her chronic back pain/left kidney issues. She claimed she was then txd for C. difficile by her PMD on & off x 1 year as an outpt, "a few years ago", apparently with Flagyl, then Vanco, then Dificid, the latter of which "helped". She was asymptomatic since then from a diarrheal perspective x few yrs, until she took Clindamycin for a dental abscess, towards the end of 05/2017. She stated she developed dirrhea 1 week after stopping the Clindamycin, in mid-06/2017, & "had + C. difficile again", as per her PMD. 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 Her PMD had called in Dificid, but she only took 1-2 doses of this, then came to the [facility]. *She had never been on a protracted Vancomycin taper. 07/18/17: + C. difficile toxin A & B, per [facility]. She presented to the [facility] 07/18/17 at 2:59 p.m., stating she had + C. difficile, that she was being txd for, as above. Upon arrival, BP 97/67, P 96, R 16, T 98.9 (Tm in ER 99.1, then 100.3 overnight) , O2 sat RA 97% She was given IV NS in the ER with improvement of BP, along with Tylenol & Flagyl 500 mg IV, after being cultured. She claimed diarrhea was too numerous to count, & independent of po intake, with occasional nocturnal stools. She had scant painless rectal bleeding after defecation of brown stool. There was no melena. She denied any significant abdominal pain, but had minimal subjective tenderness in the LLQ on exam, without any peritoneal signs. She had mild nausea, but no vomiting. She admitted to low-grade fever with questionable chills. There were no rashes or acute arthralgias. She was taking large amounts of Advil, as above. She denied any raw food ingestion, recent travel, or point source, by history. No other relatives with whom she lives had any GI symptoms. She noted mild unintentional weight loss x past few days TOUR CONSULTANT. Her appetite was fair. There was no obstipation, constipation, reflux, early satiety, hematemesis, odynophagia, or dysphagia. She denied any symptoms of UTI , gross hematuria, jaundice, acute bone pain, confusion, or symptoms of URI. She is a 5-pack-year cigarette smoker. She denied any EtOH or illicit street drugs, although she was on Suboxone. The patient was admited to general medicine 07/18/17 & was rxd Vancomycin 125 mg po Q6h & IV Flagyl 500 mg Q8h, plus IV NS @ 100 cc/hr. *She had leukocytosis ( WBC 21K) with a left shift on exam on admission, with HCT 37.8, nl HCO3, n lactate, GFR > 60, nl LFTs. She had an elevated admission d-dimer 781, with CTA chest- negative for PE. Admission CT AP- without colitis or megacolon (*see imaging studies), post G-J bypsaa, incidental umbilical hernia & biliary sludge, & 2 mm non-obst left renal stone (*no recurrent left renal mass seen, without IV cont). 07/18/17: *+ C. difficile toxin A & B. 07/18/17: 1150- Admission labs- WBC 21.3 (90S/4B/4L/2M), H/H 12.8/37.8, MCV 84.3 , RDW 13.9, PLT 237, glu 120, BUN/Cr 15/0.6, GFR > 60, Na 139, K 3.7, HCO3 28, AG 9, nl lactate 1.1, Ca 8.6, alb 3.6, glob 2.9,TBil 0.5, alk phos 65, AST 26, ALT 22. troponin < 0.01, *elev d-Dimer 781 07/18/17: U/A- hazy, yellow, > 1.030, 6.0, 1-3 WBC, mod bact, few epith, mod amorph, neg glu, 15+ ketone, neg Hgb, neg icto, urobil 0.2, 30+ prot; neg nitrite, tr esterase. 07/18/17: Utox- negative. 07/18/17: UC- neg x 1 day. 07/18/17: BC x 2- neg x 1 day. 07/18/17: *+ C. difficile toxin A & B. 07/18/17: *Stool Giardia Ag- neg, Cryptosporidium Ag- neg. 07/18/17: *Stool C&S, Shiga toxin- *pending. 07/19/17: 0745- BUN/Cr 11/0.5, GFR > 60, Na 139, K 3.6, HCO3 24, AG 7, troponin < 0.01 (*The patient was a hard stick & refused CBC on 07/19/17). 07/18/17: EKG- NSR @ 82, nl axis, prob LAE, NSST diffusely (*no S1QT3 re: elevated d-Dimer). 07/18/17: CT ABD & PELVIS W/O IV CONTRAST (per ER)- Mildly distended GB with small amount of sludge. No GB wall thickening or pericholecystic fluid. Normal CBD. Normal liver. Normal pancreas & spleen (within the limits of a non- IV cont study) Post Onofre-en-Y GJ bypass. Small HH with postop change at GEJ. Otherwise nl SB & LB. *No gross colitis or megacolon. Postop change anterior abdominal wall, with small umbilical fat-containing hernia. No acute abdominal/pelvic pathology. Stable 2 mm punctate nonobstructive calculus in the lower pole left kidney. No hydronephrosis. (*No recurrent left renal mass seen, without IV cont). Mild DJD. 07/18/17: XRY-PORTABLE CHEST XRAY- No evidence of pneumonia. 07/18/17: CT ANGIOGRAM OF THE CHEST WITH AND WITHOUT CONTRAST (CT PULMONARY ANGIOGRAM FOR PE)- No evidence of pulmonary embolism or acute thoracic pathology. VTE: Negative. *The patient is a fair historian and was somewhat agitated, anxious, and depressed. Limited records were available at [facility]. She refused a repeat CBC with differential on 07/19/17. 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 It was difficult for her to focus. Her baseline & only 10/16/09: colonoscopy per Dr. Lester (done for bloody diarrhea then) showed acute & chronic proctitis, txd with a short course of Rowasa enema 4g pr Qhs then. There was no definite documentation of IBD. There is no FHx colon Ca or IBD, with weak FHx gastric Ca (MGM- 60's). She had not been compliant with GI office follow-up since, despite "recurrent bouts of C. difficile", apparently managed by her PMD. She was taking large amounts of Advil for her chronic back pain/left kidney issues. However, admission 06/09/18: CT AP w/o cont- no colitis or megacolon, albeit with WBC 21K & left shift. She had 08/19/10: + C. difficile per ER, txd with ? regimen as an outpt. She claimed she was then txd for C. difficile by her PMD on & off x 1 year as an outpt, "a few years ago", apparently with Flagyl, then Vanco, then Dificid, the latter of which "helped". She was asymptomatic since then from a diarrheal perspective, until she took Clindamycin for a dental abscess, towards the end of 05/2017. She stated she developed dirrhea 1 week after stopping the Clindamycin, in mid-06/2017, & "had + C. difficile again", as per her PMD. 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 Her PMD had called in Dificid, but she only took 1-2 doses of this. *She had never been on a protracted Vancomycin taper. 07/18/17: + C. difficile toxin A & B. *SUGGEST- Continue IV Flagyl 500 mg Q8h. *Increase po Vancomycin to 250 mg po Q6h x 10 days, to be followed by Vanco taper over 2 months. *Add Questran 4g po TID 1/2 hr before meals (make sure other meds are given either > 1 hr before or > 2 hrs after the Questran, so as not to interfere with their absorption). *No NSAIDS ( can potentially cause colitis, although none seen on 07/18/17: CT AP w/o cont). Repeat CBC with diff, as patient allows. Serial abdominal exams. IVF (currently NS @ 100cc/hr). Strict I/O's. *Clears po as tolerated, for now. *When diet is advanced, separate solids & liquids to avoid dumping syndrome, post G-J bypass. *Eventual bariatric supplements (i.e.- MVI, Fe, B12, Ca2+, Vit D, thiamine, etc) . Follow-up cultures, along with 07/18/17: stool C&S, Shiga toxin. *If the patient does not respond to the above tx, other considerations could include flex sig vs. colonoscopy to rule out additional pathology (i.e.- IBD, CMV, NSAID colitis), although again, no colitis was seen on admission CT. *Other possibilities could include a repeat trial of Dificid and/or eventual FMT. I would not bother with a stool for lactoferrin, which could be positive from C. difficile. *Consider checking fecal calprotectin, ESR, & CRP. Follow-up lytes & GFR. *Zofran as needed. *Advise ID consult. Eventual follow-up with urology & IR regarding "recurrent" left renal tumor (she is due for a procedure for this by [facility] 08/04/17). Tx of other issues (Suboxone for opioid dependence, Zoloft ), DVT prophylaxis, and abnormal urinary sediment, per medical team. She was given our GI office number for future reference. The above findings & recommendations were discussed with the medical housestaff, & I previously spoke with Dr. Rousseau on 07/19/17. Further GI recommendations to follow, depending on clinical course. Problem List: 1. Clostridium difficile diarrhea 2. Hypotension 3. Nausea 4. Leukocytosis 5. Kidney stone 6. Clear cell carcinoma of left kidney 7. History of proctitis 8. Umbilical hernia 9. Biliary sludge 10. Gastric bypass status for obesity 11. Opioid dependence Copies To: Kacy MORENO,Coreen; Rose MORENO,Jorje Oates MD,Haim; Anjum MORENO,Michael Consult Acknowledgment - Thank you for your consult request.
[2017-07-19 22:10] VITALS: BP 106/56
[2017-07-20 06:00] VITALS: BP 128/66
--- NOTE | 2017-07-20 07:41 | PN- Housestaff ---
Subjective Follow-up For: Clostridium dificile Subjective: Patient was seen and examined today. Review of Systems Constitutional: Reports: see HPI. Objective Last 24 Hrs of Vital Signs/I&O Vital Signs Date Time Temp Pulse Resp B/P B/P Pulse O2 O2 Flow FiO2 Mean Ox Delivery Rate 07/20 06 98.5 62 16 128/66 95 Room Air 07/19 2210 98.6 61 18 106/56 97 07/19 1507 98.6 83 20 130/70 98 07/19 1230 98.9 Intake & Output 07/20 0800 07/20 0000 07/19 1600 Intake Total 220 1100 1500 Output Total Balance 220 1100 1500 Intake, IV 120 800 900 Intake, Oral 100 300 600 Number 1 2 2 Bowel Movements Physical Exam General Appearance: Alert, Cooperative, No Acute Distress Skin: No Rashes, No Breakdown, No Significant Lesion HEENT: Atraumatic, PERRLA, EOMI, Mucous Membr. moist/pink Cardiovascular: Regular Rate, Normal S1, Normal S2 Lungs: Clear to Auscultation, Normal Air Movement Abdomen: Normal Bowel Sounds, Soft, No Tenderness Neurological: Normal Gait, Normal Speech, Strength at 5/5 X4 Ext, Normal Tone, Sensation Intact, Cranial Nerves 3-12 NL, Reflexes 2+ Extremities: No Clubbing, No Cyanosis, No Edema, Normal Pulses, No Tenderness/ Swelling Current Medications: Current Medications Sig/Meghann Start time Last Medication Dose Route Stop Time Status Admin Acetaminophen 325 MG ONCE ONE 07/20 0630 DC 07/20 PO 07/20 0631 0629 Buprenorphine/ 2 TAB 5PM 07/19 1700 AC 07/19 Naloxone SL 1803 Buprenorphine/ 2 TAB 1400 07/19 1400 DC Naloxone SL Buprenorphine/ 1 TAB 0800 07/19 0800 AC Naloxone SL Cholestyramine Resin 1 PAC TIDAC 07/20 0800 AC PO Heparin Sodium 5,000 UNIT Q8 07/19 0600 AC 07/19 (Porcine) SC 0624 Metronidazole 500 MG Q8 07/19 06 AC 07/20 N/A 1 UNIT IV 0618 Sertraline HCl 50 MG AT BEDTIME 07/19 2100 AC 07/19 PO 195 Sertraline HCl 50 MG DAILY 07/19 0900 DC PO Sodium Chloride 1,000 ML Q10H 07/19 0015 DC 07/19 IV 07/19 Vancomycin HCl 250 MG Q6H 07/19 1930 AC 07/20 PO 0122 Vancomycin HCl 125 MG Q6H 07/19 0730 DC 07/19 PO 1411 Last 24 Hrs of Lab/Luis Results Last 24 Hrs of Labs/Mics: Laboratory Tests 07/19/17 0745: Anion Gap 7, Estimated GFR > 60, BUN/Creatinine Ratio 22.0, Troponin I < 0.01 Assessment/Plan Assessment: Patient is a 56 y/o female with PMH of C. difficile twice during the same year 6 years ago, her symptoms resolve completely until this started again around 3 weeks ago when she used clindamycin for oral abscess. She was treated with one week of vancomycin which in my opinion not sufficient given her history of recurrent C. difficile. The patient on admission met sepsis criteria with leukocytosis of >20,000 and tachycardia > 90/min, and meets criteria for severe C. difficile (leukocytosis). Patient today remains afebrile with reported improvement in bowel movements and overall patient reports feeling much better. Patient is a hard stick and continues to refuse any further blood draws. Unable to assess WBC count or creatinine today. ID was consulted and patient's medications were adjusted. As patient not currently septic, no has ileus, or toxic megacolon and hence not meeting criteria for fulmuninant c.dif, will discontinue PO flagyl. Patient today states that she would like to go home as her cat has renal failure and she has to administer IV fluid. Patient reports she feels well enough to take oral medications. Patient is tolerating regular diet. Plan * Patient will be discharged on a long vancomycin taper * Home medications were continued * Patient is to follow up with her pcp and GI * Patient will contact her interventional radiologist prior to her procedure on August 04 for her left kidney lesion DVT PPx: ALPs, Lovenox Diet: Regular Code: Full code Problem List: 1. Clostridium difficile diarrhea Pain Ratin Pain Location: abdomen Pain Goal: Pain 4 or less Pain Plan: tylenol PRN Tomorrow's Labs & Rationales: none - discharge home today
--- NOTE | 2017-07-20 11:32 | Patient Discharge Instructions ---
Discharge Instructions General Discharge Information You were seen/treated for: Clostridium dificile Special Instructions: 1. Please see your pcp within 1 week of discharge 2. Please follow up with the GI doctor 3. Please take the full course of antibiotics as prescirbed Diet Continue normal diet: No Recommended Diet: Regular no added salt Acute Coronary Syndrome Inclusion Criteria At DC or during hospital stay patient has or had the following: ACS DIAGNOSIS No Discharge Core Measures Meds if any: Prescribed or Continued at Discharge Meds if any: NOT Prescribed or Continued at Discharge Congestive Heart Failure Inclusion Criteria At DC or during hospital stay patient has or had the following: CHF DIAGNOSIS No Discharge Core Measures Meds if any: Prescribed or Continued at Discharge Meds if any: NOT Prescribed or Continued at Discharge Cerebrovascular accident Inclusion Criteria At DC or during hospital stay patient has or had the following: CVA/TIA Diagnosis No Discharge Core Measures Meds if any: Prescribed or Continued at Discharge Meds if any: NOT Prescribed or Continued at Discharge Venous thromboembolism Inclusion Criteria VTE Diagnosis No VTE Type NONE VTE Confirmed by (Test) NONE Discharge Core Measures - Per Current guidelines, there needs to be overlap - treatment for the first 5 days of Warfarin therapy. - If discharged on Warfarin prior to 5 days of - overlap therapy, the patient will need to be - assessed for post discharge needs including - *Post discharge parental anticoagulation - *Warfarin and/or parental anticoagulation education - *Follow up date to check INR post discharge At least 5 days overlap therapy as Inpatient No Meds if any: Prescribed or Continued at Discharge Note: Overlap Therapy is Warfarin and Anticoagulant Meds if any: NOT Prescribed or Continued at Discharge
--- NOTE | 2017-07-20 13:52 | Cons- Infect Disease ---
General Information and HPI Consulting Request Date of Consult: 07/20/17 Requested By: Rakesh Solano MD Reason for Consult: Recurrent C. difficile Source of Information: patient History of Present Illness: This is a 56-year-old woman with a history of left renal cell carcinoma, status post cryoablation, with a recent recurrence, chronic back pain, opioid dependence, depression, status post gastric bypass, nephrolithiasis and a history of C. difficile 7 years prior to admission, treated with Flagyl, followed by Vancomycin, with continued diarrhea for a year, which ultimately resolved with Fidaxomicin, recently treated with a one week course of Clindamycin for a dental abscess, with the development of diarrhea 2 weeks after completing the course of antibiotics, treated with a one week course of Vancomycin, with resolution of her diarrhea, admitted on July 18 with recurrent diarrhea, associated with abdominal cramps, body aches, weakness, fevers and chills not responsive to 2 doses of Fidaxomicin. On admission she was afebrile with a blood pressure of 97/67. Laboratory data revealed a white blood cell count of 21,000, BUN/creatinine 15 and 0.6, with normal liver enzymes. Urinalysis 1-3 WBCs. Chest x-ray was negative. CT of the abdomen and pelvis without contrast revealed a stable punctate nonobstructive calculus in the left kidney. CTA of the chest was negative. She was begun on p.o. Vancomycin and IV Flagyl. She developed a low-grade temperature to 100.3 overnight but has been afebrile since. A stool C. difficile was reported positive on July 19 and her dose of Vancomycin was increased to 250 mg every 6 hours. She did have 5 stools recorded yesterday but notes improvement today with no further diarrhea and she feels overall improved. Allergies/Medications Allergies: Coded Allergies: latex (Mild, BURNING SENSATION 12/24/15) Home Med List: Buprenorphine HCl/Naloxone HCl (Suboxone 8 MG-2 MG Sl Film) 8 MG-2 MG FILM 1.5 STR SL DAILY UNKNOWN (Reported) Sertraline HCl 50 MG TABLET 1 TAB PO DAILY MENTAL HEALTH (Reported) Past History Travel History Traveled to [place] past 21 day No Medical History Blood Transfusion Hx: No Neurological: NONE EENT: NONE Cardiovascular: NONE Respiratory: NONE Gastrointestinal: C. 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 Sotelo at [facility] hernia repair x 2 (? 2009 & 2011) 11/16/12: Lef lap cryoablation of upper pole left renal mass with bx: clear cell RC Ca; left renal stent x 2 (removed); left nephrostomy tube ( removed) Family History Relations & Conditions If Any: MOTHER ([employer]). Age 86. FATHER ([employer]). Age 86. MGM, , Age 60+; Cause: Gastric cancer. Psychosocial History Where Do You Live? Home Who Do You Live With? child, rosa maria & 1 of her sons Services at Home: None Primary Language: Korean Smoking Status: Current Everyday Smoker ETOH Use: denies use Illicit Drug Use: denies illicit drug use (on rx Suboxone) Living Will? no Power of Scanning Coordinator/HCP? no Other Social History: . 5 pk yr cigarette smoker, currently 1/4 ppd. No EtOH. No illicit street drugs, but on rx Suboxone. Lives with her boyfriend ("rosa maria") & 1 of her sons. 2 sons- [employer]. 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 Functional Ability ADLs Independent: dressing, eating, toileting, bathing. Ambulation: independent IADLs Independent: shopping, housework, finances, food prep, telephone, transportation , medication admin. Employment History Employment: Employed Profession/Employer: Drives a school bus Review of Systems Review of Systems All Other Systems: Reviewed and Negative Exam & Diagnostic Data Last 24 Hrs of Vital Signs/I&O Vital Signs Date Time Temp Pulse Resp B/P B/P Pulse O2 O2 Flow FiO2 Mean Ox Delivery Rate 07/20 06 98.5 62 16 128/66 95 Room Air 07/19 2210 98.6 61 18 106/56 97 07/19 1507 98.6 83 20 130/70 98 Intake & Output 07/20 1600 07/20 0800 07/20 0000 Intake Total 220 1100 Output Total Balance 220 1100 Intake, IV 120 800 Intake, Oral 100 300 Number 1 2 Bowel Movements Patient 189 lb Weight Weight Bed scale Measurement Method Physical Exam Other Physical Findings: She is awake and alert in no acute distress. She is afebrile. Skin reveals no rash. HEENT exam is negative. Neck is supple with no adenopathy. Lungs are clear. Heart regular rhythm with no murmur. Abdomen is soft, tender on palpation over the lower abdomen, with no guarding or rebound, with positive bowel sounds. Back no CVA tenderness. Extremities no cyanosis, clubbing or edema. Neuro is without focality. Last 24 Hours of Lab Results: Laboratory Tests 07/19 07/19 07/18 07/18 0745 0600 1828 1658 Chemistry Sodium (137 - 145 mmol/L) 139 Cancelled 139 Potassium (3.5 - 5.1 mmol/L) 3.6 Cancelled 3.7 Chloride (98 - 107 mmol/L) 109 H Cancelled 103 Carbon Dioxide (22 - 30 mmol/L) 24 Cancelled 28 Anion Gap (5 - 16) 7 Cancelled 9 BUN (7 - 17 mg/dL) 11 Cancelled 15 Creatinine (0.5 - 1.0 mg/dL) 0.5 Cancelled 0.6 Estimated GFR (>60 ml/min) > 60 > 60 BUN/Creatinine Ratio (7 - 25 %) 22.0 Cancelled 25.0 Glucose (65 - 99 mg/dL) 120 H Lactic Acid (0.7 - 2.1 mmol/L) Cancelled 1.1 Calcium (8.4 - 10.2 mg/dL) 8.6 Total Bilirubin (0.2 - 1.3 mg/dL) 0.5 AST (14 - 36 U/L) 26 ALT (9 - 52 U/L) 22 Alkaline Phosphatase (<127 U/L) 65 Troponin I (< 0.11 ng/ml) < 0.01 < 0.01 Total Protein (6.3 - 8.2 g/dL) 6.5 Albumin (3.5 - 5.0 g/dL) 3.6 Globulin (1.9 - 4.2 gm/dL) 2.9 Albumin/Globulin Ratio (1.1 - 2.2 %) 1.2 Hematology CBC w Diff Cancelled WBC Cancelled RBC Cancelled Hgb Cancelled Hct Cancelled MCV Cancelled MCH Cancelled MCHC Cancelled RDW Cancelled Plt Count Cancelled MPV Cancelled 07/18 07/18 1640 1550 Coagulation D-Dimer High Sensitivty (0 - 243 ng/ml) 781 H Hematology CBC w Diff MAN DIFF ORDERED WBC (4.8 - 10.8 /CUMM) 21.3 H RBC (4.20 - 5.40 /CUMM) 4.49 Hgb (12.0 - 16.0 G/DL) 12.8 Hct (37 - 47 %) 37.8 MCV (81.0 - 99.0 FL) 84.3 MCH (27.0 - 31.0 PG) 28.4 MCHC (33.0 - 37.0 G/DL) 33.7 RDW (11.5 - 14.5 %) 13.9 Plt Count (130 - 400 /CUMM) 237 MPV (7.4 - 10.4 FL) 8.1 Gran % (42.2 - 75.2 %) 94.9 H Lymphocytes % (20.5 - 51.1 %) 2.5 L Monocytes % (1.7 - 9.3 %) 2.5 Eosinophils % (0 - 5 %) 0 Basophils % (0.0 - 2.0 %) 0.1 Absolute Granulocytes (1.4 - 6.5 /CUMM) 20.2 H Segmented Neutrophils (42.2 - 75.2 %) 90 H Band Neutrophils (0.0 - 5.0 %) 4 Absolute Lymphocytes (1.2 - 3.4 /CUMM) 0.5 L Lymphocytes (20.5 - 51.1 %) 4 L Monocytes (1.7 - 9.3 %) 2 Absolute Monocytes (0.10 - 0.60 /CUMM) 0.5 Absolute Eosinophils (0.0 - 0.7 /CUMM) 0 Absolute Basophils (0.0 - 0.2 /CUMM) 0 Platelet Estimate (ADEQUATE) ADEQUATE Stomatocytes FEW Toxicology Urine Opiates Screen (>2000 NG/ML) < 100 Methadone Screen (>300 NG/ML) < 40 Barbiturate Screen (>200 NG/ML) < 60 Ur Phencyclidine Scrn (>25 NG/ML) < 6.00 Amphetamines Screen (>1000 NG/ML) 128 U Benzodiazepines Scrn (>200 NG/ML) 169 Urine Cocaine Screen (>300 NG/ML) < 50 Urine Cannabis Screen (>50 NG/ML) < 5.00 Urines Urinalysis MOD H Urine Color (YEL,AMB,STR) YEL Urine Clarity (CLEAR) HAZY H Urine pH (5.0 - 8.0) 6.0 Ur Specific [place] (1.001 - 1.035) >= 1.030 Urine Protein (NEG,<30 MG/DL) 30 H Urine Ketones (NEG) 15 H Urine Nitrite (NEG) NEG Urine Bilirubin (NEG) NEG@ICTO Urine Urobilinogen (0.1 - 1.0 EU/dl) 0.2 Ur Leukocyte Esterase (NEG) TRACE H Ur Microscopic SEDIMENT EXAMINED Urine WBC (0 - 2 /HPF) 1-3 H Ur Epithelial Cells (NONE,FEW) FEW Urine Bacteria (NEG/NONE) MOD H Urine Mucus (FEW,NONE) MOD H Urine Hemoglobin (NEG) NEG Urine Glucose (N MG/DL) NEG Last 24 Hours of Luis Results: Stool C. difficile July 18 positive Stool O&P July 18 negative Blood cultures 2 July 18 negative Urine culture July 18 negative Diagnostic Data Recent Imaging Findings: Chest x-ray July [address] of the abdomen and pelvis without contrast July 18 reveals a stable punctate nonobstructive calculus in the left kidney CTA of the chest July 18 negative Assessment/Plan Assessment/Plan Impression: This is a 56-year-old woman with a history of C. difficile 7 years prior to admission, treated with Flagyl, followed by Vancomycin, with continued diarrhea for a year, which ultimately resolved with Fidaxomicin, recently treated with a one week course of Clindamycin for a dental abscess, complicated by C. difficile 2 weeks later, treated with a one week course of Vancomycin with resolution of her diarrhea, admitted on July 18 with recurrent diarrhea, associated with abdominal cramps, body aches, weakness, fevers and chills despite 2 doses of Fidaxomicin, found to be afebrile with a leukocytosis, a negative CT of the abdomen and pelvis and a stool for C. difficile positive. Her clinical l picture is consistent with severe C. difficile. She had no hypotension or evidence of ileus or toxic megacolon on CT scan to suggest a fulminant presentation; therefore p.o. Vancomycin alone should be adequate treatment. The recommended dose of Vancomycin is 125 mg p.o. every 6 hours and she can be continued on this dose for 10-14 days. As she only received 1 week of Vancomycin for her recent episode this does not exactly qualify as a "relapse "; nevertheless, given her history of previous recalcitrant C. difficile, it may be reasonable to treat her as a relapse and give her a tapering course of Vancomycin after she completes the 10-14 days. Suggestion: 1. Discontinue Flagyl 2. Decrease Vancomycin to 125 mg p.o. every 6 hours and continue for 14 days 3. After she completes the [address] would place on a tapering regimen of 125 mg p.o. every 12 hours for 1 week, followed by 125 mg p.o. every 24 hours for 1 week, followed by 125 mg p.o. every 48 hours for 1 week, followed by 125 mg p.o. every 72 hours for 2 weeks Consult Acknowledgment - Thank you for your consult request.
[2017-07-20] MEDS ORDERED: VANCOMYCIN HCL125 MG PO ×3 (14:08→14:41)
[2017-07-20 14:09] VITALS: BP 136/78
--- NOTE | 2017-07-20 16:25 | Discharge Summary ---
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 Patient completed a 1 week course of oral vancomycin. Patient presents this admission due to continued bouts of watery diarrhea. On admission: Vitals on presentation: Tmax 100.3, HR 80-90's, BP 97/67 -->101/48 --> 96/51 --> 109/59, sats 94% RA. Labs: WBC 21.3, H/H 12.8/37.8, platelets 237, granulocytes 94.9%, segmented neutrophils 90, bands 4, sodium 139, potassium 3.7, chloride 103, CO2 28, BUN 15 , creatinine 0.6, glucose 120, lactic acid 1.1, troponin <0.01, UA showed mucus, bacteriuria, trace LE, 15 ketones, CT abd/pelvis: gallbladder is mildly distended with small amount of echogenic sludge layering, no wall thickening or pericholecystic fluid, nonobstructive calculus in left kidney, no acute pathology. CXR: no pneumonia. CTA chest: no PE. EKG: sinus rhythm, T-wave inversions/ flattening in inferior leads and V3-6 ( slightly more prominent than on previous EKG), Qtc 421. Patient was admitted to the general medical floor for management. On admission patient was tachycardia > 90/min with leukocytosis of >20,000 meeting criteria for severe C. difficile. Patient was initially started on PO vancomycin and IV flagyl. There were no signs of fulminant c.dificile and the IV flagyl was stopped. Patient was evaluated by infectious disease and GI. 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 Patient reported she needed to go home to take care of her cat who has renal failure. Prior to discharge patient's vitals were stable and stool count and consistency improved and patient tolerated solid food prior to discharge. 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 Patient's home medications: suboxone and sertraline were continued. DVT PPx: ALPs, Lovenox Diet: Regular Code: Full code Allergies: Coded Allergies: latex (Mild, BURNING SENSATION 12/24/15) Pertinent Lab Results: SERVICE DATE: 07/18/17 EXAM TYPE: CAT - CT ABD & PELVIS W/O IV CONTRAS EXAMINATION: CT ABDOMEN AND PELVIS WITHOUT CONTRAST CLINICAL INFORMATION: Diarrhea with back pain. COMPARISON: CT abdomen/pelvis 06/07/2017. TECHNIQUE: Multidetector volumetric imaging was performed from the superior aspect of the liver through the pubic symphysis. Sagittal and coronal reformatted images were obtained on the technologist's workstation. DLP: 464.68 mGy-cm FINDINGS: LUNG BASES: The visualized lung bases are unremarkable. LIVER, GALLBLADDER, AND BILIARY TREE: The liver is normal in size, shape, and attenuation. No focal hepatic lesion or biliary ductal dilatation is present. The gallbladder is mildly distended with a small amount of echogenic sludge layering within the dependent gallbladder. No gallbladder wall thickening or pericholecystic fluid. The common bile duct is normal. PANCREAS: Unremarkable. SPLEEN: Unremarkable. ADRENAL GLANDS: Unremarkable. KIDNEYS AND URETERS: The kidneys are normal in size, shape, and attenuation. No hydronephrosis or hydroureter. Punctate 2 mm calcification lower pole left kidney is unchanged. No perinephric stranding. BLADDER: Unremarkable. GASTROINTESTINAL TRACT: Status post Onofre-en-Y gastric bypass. The small and large bowel are otherwise normal in course and caliber . No obstruction. No pericolonic inflammatory changes. Small hiatal hernia with additional postsurgical changes of the gastroesophageal junction. ABDOMINAL WALL: Stable postsurgical changes of the anterior abdominal wall with a prominent soft tissue calcification. Small umbilical fat-containing hernia, unchanged. LYMPH NODES: Normal. VASCULAR: Minimal atherosclerotic changes of the abdominal aorta and its branches. PELVIC VISCERA: Unremarkable. OSSEOUS STRUCTURES: Stable mild degenerative changes of the spine. No acute osseous finding. IMPRESSION: No acute abdominal/pelvic pathology. Stable punctate nonobstructive calculus in the left kidney. SERVICE DATE: 07/18/17 EXAM TYPE: RAD - XRY-PORTABLE CHEST XRAY EXAMINATION: XR CHEST, PORTABLE CLINICAL INFORMATION: Elevated WBC, fever. COMPARISON: Chest radiography 11/17/2012. TECHNIQUE: Portable frontal view of the chest was obtained. FINDINGS: The lungs are well expanded. No convincing lobar consolidation, pleural effusion, pulmonary edema, or pneumothorax. No mediastinal widening. Surgical clips overlie the lower thorax/upper abdomen. No acute osseous abnormalities. IMPRESSION: No evidence of pneumonia. SERVICE DATE: 07/18/17 EXAM TYPE: CAT - CTA CHEST-PULMONARY EMBOLISM EXAMINATION: CT ANGIOGRAM OF THE CHEST WITH AND WITHOUT CONTRAST (CT PULMONARY ANGIOGRAM FOR PE) CLINICAL INFORMATION: Hypoxia and hypotension. COMPARISON: None available. TECHNIQUE: Prior to contrast administration, noncontrast localization images were obtained. Subsequently, multidetector volumetric imaging was performed from the thoracic inlet to below the diaphragms following the administration of 95 mL Optiray 320 intravenous contrast. No contrast reaction reported. Sagittal, coronal, and MIP oblique sagittal reformatted images were obtained on the CT workstation, uploaded to PACS, and reviewed. Total exam dose-length product 400.46 mGy-cm. FINDINGS: QUALITY OF STUDY/CONTRAST BOLUS: Satisfactory PULMONARY ARTERIES: No central or segmental pulmonary emboli. THORACIC AORTA: No aneurysm or dissection. LUNG: No focal consolidation, nodules or masses. Minimal gravity dependent changes of the lungs bilaterally. PLEURA: No pleural effusion or pneumothorax. MEDIASTINUM: Normal heart size. No pericardial effusion. No hilar or mediastinal lymphadenopathy. No evidence of septal bowing or right heart strain. CHEST WALL/AXILLA: No axillary or internal mammary lymphadenopathy. OSSEOUS STRUCTURES: No acute or suspicious osseous abnormality. UPPER ABDOMEN: Stable appearance of the abdomen from CT examination dated earlier today. No reflux of contrast into the hepatic veins to suggest elevated right heart pressures. IMPRESSION: No evidence of pulmonary embolism or acute thoracic pathology. VTE: Negative. Disposition Summary Disposition Principal Diagnosis: Sepsis secondary to severe Clostridium Dificile Additional Diagnosis: Chronic Back Pain Discharge Disposition: home or self care Discharge Instructions General Discharge Information Code Status: Full Code Patient's Diet: Regular diet Patient's Activity: Self-Limited Follow-Up Instructions/Appts: 1. Please see your pcp within 1 week of discharge 2. Please follow up with the GI doctor 3. Please take the full course of antibiotics as prescirbed Medications at Discharge Discharge Medications: Continue taking these medications: Buprenorphine HCl/Naloxone HCl (Suboxone 8 MG-2 MG Sl Film) 8 MG-2 MG FILM 1.5 Strip SUBLINGUAL DAILY Qty = 28 Comments: Last Taken: 07/19/17 Time:600PM Sertraline HCl (Sertraline HCl) 50 MG TABLET 1 Tablet ORAL DAILY Qty = 30 Comments: Last Taken: 07/20/17 Time: 753PM Start taking the following new medications: Vancomycin HCl (Vancomycin HCl) 125 MG CAPSULE 0 ORAL SEE INSTRUCTIONS Qty = 82 No Refills Instructions: See instructions below. Comments: Last Taken: 07/20/17 Time: 1400 1 tab 4x/day for 13 days 1 tab 2x/day for 7 days 1 tab daily for 7 days 1 tab every other day for 7 days 1 tab every second day for 14 days Copies To: aLshon MORENO,Haim Manley MD Review Statement Documenting Attending: Rakesh Solano MD Other Findings: Management of sepsis secondary to C. difficile associated diarrhea.
== END 2017-07-20 16:37 | DRG 720 ==
LOC: ERH 14:59 → ERHI 22:48 → 2NA 22:48 → ENRESERV 23:24 → 2NA 23:52 → ENPENDDIS 07-20 14:19 → 2NA 07-20 16:37
PROVIDERS: Physician Assistant Medical
DX: A41.89 Other specified sepsis (principal); A04.71 Enterocolitis due to Clostridium difficile, recurrent; N20.0 Calculus of kidney; F17.210 Nicotine dependence, cigarettes, uncomplicated; Z85.528 Personal history of other malignant neoplasm of kidney; F32.9 Major depressive disorder, single episode, unspecified; M54.9 Dorsalgia, unspecified; G89.29 Other chronic pain; F41.9 Anxiety disorder, unspecified; Z98.84 Bariatric surgery status
CPT/HCPCS: 2NAP; 36415; 71045; 74176; 80307; 81001; 82436; 87015; 87040; 87045; 87086; 87328; 87329; 87899; 87899-59; 93005; 93010; 96374; 96375; J0131; J1644